=== PATIENT | female | born 1965 | race African-American/Black ===

== ENCOUNTER 2018-05-07 08:59 | Emergency (ER) | payer OTHER ==
[2018-05-07] MEDS ORDERED: OXYCODONE-ACETAMINOPHEN 5-325 MG TABLET PO ONE (10:41)
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
[2018-05-07 11:15] LABS: APPEARANCE,URINE CLEAR; BILIRUBIN,URINE NEGATIVE (NEGATIVE); COLOR,URINE YELLOW; GLUCOSE, URINE NEGATIVE (NEGATIVE); KETONES,URINE NEGATIVE (NEGATIVE); LEUKOCYTE ESTERASE,URINE TRACE (NEGATIVE); NITRITE,URINE NEGATIVE (NEGATIVE); PROTEIN,URINE NEGATIVE (NEGATIVE); UROBILINOGEN,URINE NEGATIVE mg/dL (<2.0)
[2018-05-07 11:18] LABS: ABSOLUTE BASOPHILS # (AUTO) 0.1 10^3/uL (0.0-0.2); ABSOLUTE EOSINOPHILS # (AUTO) 0.1 10^3/uL (0.0-0.6); ABSOLUTE LYMPHOCYTES (AUTO) 1.7 10^3/uL (0.5-4.7); ABSOLUTE MONOCYTES (AUTO) 0.3 10^3/uL (0.1-1.4); ABSOLUTE NEUT (AUTO) 5.2 10^3/uL (1.7-8.2); EOSINOPHILS % (AUTO) 1.9 % (0-6); HEMATOCRIT 43.4 % (36.0-47.0); HEMOGLOBIN 14.2 g/dL (12.0-15.5); LYMPHOCYTES % (AUTO) 22.4 % (13-45); MEAN CORPUSCULAR HEMOGLOBIN 25.5 pg (27.0-33.4); MEAN CORPUSCULAR HGB CONC 32.7 g/dL (32.0-36.0); MEAN CORPUSCULAR VOLUME 78 fl (80-97); MONOCYTES % (AUTO) 4.5 % (3-13); PLATELET COUNT 309 10^3/uL (150-450); RED BLOOD COUNT 5.57 10^6/uL (3.72-5.28); SEGMENTED NEUTROPHILS % (AUTO) 70.2 % (42-78); TOTAL CELLS COUNTED % (AUTO) 100 %; WHITE BLOOD COUNT 7.5 10^3/uL (4.0-10.5)
[2018-05-07] MEDS ORDERED: ONDANSETRON 4 MG TAB.RAPDIS PO ONE (11:21)
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
[2018-05-07 13:02] LABS: ANION GAP 10 (5-19); BLOOD UREA NITROGEN 12 mg/dL (7-20); CALCIUM 9.7 mg/dL (8.4-10.2); CARBON DIOXIDE 28 mmol/L (22-30); CHLORIDE 105 mmol/L (98-107); GLUCOSE 118 mg/dL (75-110); POTASSIUM 4.4 mmol/L (3.6-5.0); SODIUM 143.1 mmol/L (137-145)
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
[2018-05-07 13:45] VITALS: BP 114/54
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
== END 2018-05-07 14:29 | disposition home or self-care (01) ==
LOC: ER 08:59
DX: R10.84 Generalized abdominal pain (principal); R51 Headache; M54.2 Cervicalgia; M54.5 Low back pain; R10.30 Lower abdominal pain, unspecified; V87.7XXA Person injured in collision between other specified motor vehicles (traffic), initial encounter
CPT/HCPCS: 99284; 36415; 85025; 80048; 81001; 73552; 70450; 71250; 72125; 74176; S0119

== ENCOUNTER 2018-05-12 18:11 | Emergency (ER) | payer OTHER ==
[2018-05-12] MEDS ORDERED: CYCLOBENZAPRINE HCL 10 MG TABLET PO ONE (20:57)
[2018-05-12] MEDS ORDERED: MORPHINE SULFATE SR 15 MG TABLET PO ONE (20:58)
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
--- NOTE | 2018-05-12 21:39 | RADIOLOGY REPORT (SQ) ---
EXAM DESCRIPTION: XR FOOT 3 OR MORE VIEWS BILATERAL COMPLETED DATE/TME: 05/12/2018 20:58 CLINICAL HISTORY: 52 years, Female, pain Findings: Bony alignment is anatomic. No fracture or dislocation. Mild plantar and retrocalcaneal spurring. IMPRESSION: No fracture.
[2018-05-12 22:25] VITALS: BP 134/73
== END 2018-05-12 22:25 | disposition home or self-care (01) ==
LOC: ER 18:11
DX: M79.671 Pain in right foot (principal); M79.672 Pain in left foot; G44.89 Other headache syndrome; R07.9 Chest pain, unspecified; R10.9 Unspecified abdominal pain; V44.6XXA Car passenger injured in collision with heavy transport vehicle or bus in traffic accident, initial encounter; Z79.899 Other long term (current) drug therapy; Z88.8 Allergy status to other drugs, medicaments and biological substances
CPT/HCPCS: 99284; 73630; J3490

== ENCOUNTER 2018-10-04 11:50 | Emergency (ER) | payer OTHER ==
--- NOTE | 2018-10-04 12:47 | ER Document Report ---
ED Medical Screen (RME) - General Chief Complaint: Headache Stated Complaint: HEAD PAIN Time Seen by Provider: 10/04/18 12:44 Mode of Arrival: Wheelchair Information source: Patient Notes: 43-year-old female presented to ED for complaint of severe throbbing headache to the top of her head and behind her eyes. She states she hit her head on a car door a week ago and has had a severe headache. She states she is never had any history of strokes or blood pressure. She does have a history of rheumatoid arthritis degenerative disc disease degenerative joint disease and diverticulitis. She states she had a large amount of her large and intestines removed that she had a hernia with repair with mesh and then the mesh removed and she has had a hysterectomy. Patient is alert oriented respirations regular and unlabored pupils equal react to light and answering questions appropriately. I have greeted and performed a rapid initial assessment of this patient. A comprehensive ED assessment and evaluation of the patient, analysis of test results and completion of medical decision making process will be conducted by an additional ED providers. TRAVEL OUTSIDE OF THE [place] IN LAST 30 DAYS: No - Related Data Allergies/Adverse Reactions: alcohol Allergy (Verified 10/04/18 11:58) cinnamon Allergy (Verified 10/04/18 11:58) latex Allergy (Verified 10/04/18 11:58) Penicillins Allergy (Verified 05/07/18 09:03) shellfish derived Allergy (Verified 10/04/18 11:58) iv dye Allergy (Uncoded 10/04/18 12:35) perfumes Allergy (Uncoded 10/04/18 12:32) Past Medical History - Social History Frequency of alcohol use: None Drug Abuse: None Pulmonary Medical History: Reports: Hx Asthma - reactive airway dx Renal/ Medical History: Denies: Hx Peritoneal Dialysis Musculoskeltal Medical History: Reports Hx Arthritis - RA/djd back Past Surgical History: Reports: Hx Abdominal Surgery - large intestine colectomy/hernia repair, Hx Hysterectomy Physical Exam - Vital signs Vitals: Temp Pulse Resp BP Pulse Ox 98.0 F 62 16 129/76 H 100 10/04/18 12:01 10/04/18 12:01 10/04/18 12:01 10/04/18 12:01 10/04/18 12:01 Course - Vital Signs Vital signs: Temp Pulse Resp BP Pulse Ox 98.0 F 62 16 129/76 H 100 10/04/18 12:01 10/04/18 12:01 10/04/18 12:01 10/04/18 12:01 10/04/18 12:01
[2018-10-04 13:50] LABS: ABSOLUTE EOSINOPHILS # (AUTO) 0.1 10^3/uL (0.0-0.6); ABSOLUTE LYMPHOCYTES (AUTO) 1.5 10^3/uL (0.5-4.7); ABSOLUTE MONOCYTES (AUTO) 0.4 10^3/uL (0.1-1.4); ABSOLUTE NEUT (AUTO) 3.8 10^3/uL (1.7-8.2); BASOPHILS % (AUTO) 0.7 % (0-2); EOSINOPHILS % (AUTO) 2.5 % (0-6); HEMATOCRIT 40.5 % (36.0-47.0); LYMPHOCYTES % (AUTO) 26.1 % (13-45); MEAN CORPUSCULAR HGB CONC 32.1 g/dL (32.0-36.0); MEAN CORPUSCULAR VOLUME 78 fl (80-97); MONOCYTES % (AUTO) 6.3 % (3-13); PLATELET COUNT 274 10^3/uL (150-450); RED BLOOD COUNT 5.21 10^6/uL (3.72-5.28); RED CELL DISTRIBUTION WIDTH 14.5 % (11.5-14.0); SEGMENTED NEUTROPHILS % (AUTO) 64.4 % (42-78); TOTAL CELLS COUNTED % (AUTO) 100 %; WHITE BLOOD COUNT 5.8 10^3/uL (4.0-10.5)
[2018-10-04 13:57] LABS: INTERNATIONAL RATION (INR) 0.99; PROTHROMBIN TIME 13.6 SEC (11.4-15.4)
[2018-10-04 13:58] LABS: PARTIAL THROMBOPLASTIN TIME 35.5 SEC (23.5-35.8)
[2018-10-04] MEDS ORDERED: DEXAMETHASONE SOD PHOS INJ 10 MG/1 ML VIAL IV ONE (14:11)
[2018-10-04] MEDS ORDERED: DIPHENHYDRAMINE HCL 50 MG/ML VIAL IV ONE (14:11)
[2018-10-04] MEDS ORDERED: METOCLOPRAMIDE HCL INJ/PF 10 MG/2 ML SDV IV ONE (14:11)
[2018-10-04 14:13] LABS: ALANINE AMINOTRANSFERASE 28 U/L (9-52); ALBUMIN 4.1 g/dL (3.5-5.0); ALKALINE PHOSPHATASE 81 U/L (38-126); ANION GAP 9 (5-19); ASPARTATE AMINO TRANSFERASE 18 U/L (14-36); BILIRUBIN,DIRECT 0.4 mg/dL (0.0-0.4); BILIRUBIN,TOTAL 0.7 mg/dL (0.2-1.3); BLOOD UREA NITROGEN 10 mg/dL (7-20); CALCIUM 9.8 mg/dL (8.4-10.2); CARBON DIOXIDE 27 mmol/L (22-30); CHLORIDE 105 mmol/L (98-107); GLUCOSE 100 mg/dL (75-110); POTASSIUM 3.9 mmol/L (3.6-5.0); SODIUM 141.2 mmol/L (137-145); TOTAL PROTEIN 7.6 g/dL (6.3-8.2)
[2018-10-04 14:19] LABS: APPEARANCE,URINE CLEAR; BILIRUBIN,URINE NEGATIVE (NEGATIVE); COLOR,URINE YELLOW; GLUCOSE, URINE NEGATIVE (NEGATIVE); KETONES,URINE NEGATIVE (NEGATIVE); LEUKOCYTE ESTERASE,URINE NEGATIVE (NEGATIVE); NITRITE,URINE NEGATIVE (NEGATIVE); PROTEIN,URINE NEGATIVE (NEGATIVE); URINE SPECIFIC GRAVITY 1.021; UROBILINOGEN,URINE NEGATIVE mg/dL (<2.0)
--- NOTE | 2018-10-04 14:25 | RADIOLOGY REPORT (SQ) ---
EXAM DESCRIPTION: CT HEAD WITHOUT COMPLETED DATE/TIME: 10/04/2018 2:00 pm REASON FOR STUDY: Hit his head a week ago headache COMPARISON: 05/07/2018 TECHNIQUE: Axial images acquired through the brain without intravenous contrast. Images reviewed wi th bone, brain and subdural windows. Additional sagittal and coronal reconstructions were generated. Images stored on PACS. All CT scanners at this facility use dose modulation, iterative reconstruction, and/or weight based d osing when appropriate to reduce radiation dose to as low as reasonably achievable (ALARA). [facility]: Dose Right [facility]: CareDose [facility]: Dose Right [facility]: Teradose 4D [facility]: Zoomorama RADIATION DOSE: CT Rad equipment meets quality standard of care and radiation dose reduction techniq ues were employed. CTDIvol: 53.2 mGy. DLP: 937 mGy-cm. mGy. LIMITATIONS: None. FINDINGS: VENTRICLES: Normal size and contour. The cisterns are patent. CEREBRUM: No masses. No hemorrhage. No midline shift. No evidence for acute infarction. Normal gra y/white matter differentiation. No areas of low density in the white matter. CEREBELLUM: No masses. No hemorrhage. No alteration of density. No evidence for acute infarction. EXTRAAXIAL SPACES: No fluid collections. No masses. ORBITS AND GLOBE: No intra- or extraconal masses. Normal contour of globe without masses. CALVARIUM: No fracture. PARANASAL SINUSES: No fluid or mucosal thickening. SOFT TISSUES: No mass or hematoma. OTHER: No other significant finding. IMPRESSION: 1. No significant interval changes since the prior examination dated 05/07/2018. No acu te intracranial abnormality. EVIDENCE OF ACUTE STROKE: NO. COMMENT: Quality ID # [id number]: Final reports with documentation of one or more dose reduction techniques (e.g., Automated exposure control, adjustment of the mA and/or kV according to patient size, use of iterative reconstruction technique) TECHNICAL DOCUMENTATION: JOB ID: [id number] [employer]- All Rights Reserved Reading location - IP/workstation name: [email or web address]
--- NOTE | 2018-10-04 14:31 | ER Document Report ---
ED General - General Chief Complaint: Headache Stated Complaint: HEAD PAIN Time Seen by Provider: 10/04/18 12:44 Mode of Arrival: Wheelchair Information source: Patient TRAVEL OUTSIDE OF THE [place] IN LAST 30 DAYS: No - HPI Patient complains to provider of: Severe right sided headache, pain behind the right eye, nausea Onset: Other - 3 days ago Onset/Duration: Sudden Quality of pain: Sharp, Stabbing Severity: Severe Pain Level: 5 Associated symptoms: Nausea. denies: Chills, Diarrhea, Fever, Vomiting Exacerbated by: Denies Relieved by: Denies Similar symptoms previously: No Recently seen / treated by doctor: No Notes: 53-year-old female coming in today with 3 days of stabbing right-sided head pain, pain behind her right eye, and nausea. Also some blurry vision. No fevers or chills. No flulike illness. No neck stiffness. No rash. - Related Data Allergies/Adverse Reactions: alcohol Allergy (Verified 10/04/18 11:58) cinnamon Allergy (Verified 10/04/18 11:58) latex Allergy (Verified 10/04/18 11:58) Penicillins Allergy (Verified 05/07/18 09:03) shellfish derived Allergy (Verified 10/04/18 11:58) iv dye Allergy (Uncoded 10/04/18 12:35) perfumes Allergy (Uncoded 10/04/18 12:32) Past Medical History - General Information source: Patient - Social History Smoking Status: Smoker,Current Status Unk Frequency of alcohol use: None Drug Abuse: None Family History: Reviewed & Not Pertinent Patient has suicidal ideation: No Patient has homicidal ideation: No Pulmonary Medical History: Reports: Hx Asthma - reactive airway dx Renal/ Medical History: Denies: Hx Peritoneal Dialysis Musculoskeletal Medical History: Reports Hx Arthritis - RA/djd back Past Surgical History: Reports: Hx Abdominal Surgery - large intestine colectomy/hernia repair, Hx Hysterectomy Review of Systems - Review of Systems Notes: Constitutional: No fevers. No chills. EENT: No eye redness. No eye pain. No ear pain. No sore throat. Positive for blurry vision Cardiovascular: No chest pain. No palpitations. Respiratory: No cough. No shortness of breath. No respiratory distress. Gastrointestinal: No abdominal pain. Positive for nausea negative for vomiting and diarrhea Genitourinary: Atraumatic. No lesions. No pain. No discharge. Musculoskeletal: Atraumatic. No swelling. No deformities. Skin: No rash or lesions. Lymphatic: No swollen lymph nodes. Neurologic: +headache. No syncope. Psychiatric: No suicidal or homicidal ideation. Physical Exam - Vital signs Vitals: Temp Pulse Resp BP Pulse Ox 98.0 F 62 16 129/76 H 100 10/04/18 12:01 10/04/18 12:01 10/04/18 12:01 10/04/18 12:01 10/04/18 12:01 - Notes Notes: General: Very uncomfortable appearing but nontoxic Cardiac: Well-perfused. Regular rate and rhythm. No murmurs, rubs, or gallops. Pulmonary: No respiratory distress. No cyanosis. Bilateral lung fiels are clear to auscultation. Abdominal: Non-distended. Non-rigid. Bowels sounds are present in all four quadrants. No guarding or rebound. HEENT: Right templar tenderness to palpation. Conjunctivae not reddened. No tearing. PERRL. EOMI. Orbits atraumatic. No periorbital swelling or erythema. Oropharynx is without erythema, swelling, or exudates. Neck: Supple. No adenopathy. No meningismus. Dermatologic: Warm with good turgor. No rash. Atraumatic. Chest: Atraumatic. No chest wall tenderness to palpation. Musculoskeletal: Moves all extremities well. No range of motion deficits. no muscular or joint tenderness. No paraspinal muscle tenderness. no midline spinal tenderness or step-off. Genitourinary: Examination deferred Neurologic: No gross neurologic deficits. Psychiatric: Normal mood. Course - Re-evaluation Re-evalutation: 10/04/18 15:50 CT is negative. Labs look good including sed rate that is not elevated. Discussed that with the patient and she is relieved. Headache is still pretty significant. Now that a note that were not dealing with a hemorrhagic process I will go ahead and give some Toradol and some Dilaudid and some fluids and recheck her in just a little bit. 10/04/18 16:57 Headache is resolved. We will refer her to [facility] for further evaluation. - Vital Signs Vital signs: Temp Pulse Resp BP Pulse Ox 98.0 F 62 16 129/76 H 100 10/04/18 12:01 10/04/18 12:01 10/04/18 12:01 10/04/18 12:01 10/04/18 12:01 - Laboratory Result Diagrams: 10/04/18 13:43 10/04/18 13:43 Laboratory results interpreted by me: 10/04/18 10/04/18 13:43 13:43 MCV 78 L [facility] 25.0 L RDW 14.5 H Urine Blood SMALL H Discharge - Discharge Clinical Impression: Headache Qualifiers: Headache type: unspecified Headache chronicity pattern: acute headache Intractability: not intractable Qualified Code(s): R51 - Headache Condition: Good Disposition: HOME, SELF-CARE Instructions: Use of Diphenhydramine, Antinausea Medication ([facility]), Headache ([facility]), Oral Narcotic Medication ([facility]) Prescriptions: Butalb/Acetaminophen/Caffeine [Fioricet (50-325-40 mg) Tablet] 1 tab PO Q6HP PRN #12 tab PRN Reason: Metoclopramide HCl [Reglan] 10 mg PO Q6HP PRN #12 tablet PRN Reason: Referrals: [facility] [Provider Group] - 10/06/18
[2018-10-04] MEDS ORDERED: HYDROMORPHONE HCL INJ/PF 2 MG/ML AMPULE IV ONE (15:48)
[2018-10-04] MEDS ORDERED: KETOROLAC TROMETHAMINE INJ/PF 30 MG/1 ML SDV IV ONE (15:48)
[2018-10-04] MEDS ORDERED: NORMAL SALINE 1000 ML 1,000 ML IV ONE (15:49)
[2018-10-04 17:05] VITALS: BP 136/72
== END 2018-10-04 17:08 | disposition home or self-care (01) ==
LOC: ER 11:50
DX: R51 Headache (principal); R11.0 Nausea; H53.8 Other visual disturbances; J45.909 Unspecified asthma, uncomplicated; Z91.018 Allergy to other foods; Z91.040 Latex allergy status; Z88.0 Allergy status to penicillin; Z91.041 Radiographic dye allergy status; Z91.013 Allergy to seafood; Z91.048 Other nonmedicinal substance allergy status
CPT/HCPCS: 99284; 96361; 96374; 96375; 36415; 85025; 85652; 85610; 85730; 80053; 81001; 70450; J1200; J1885; J2765; J1170; J7030; J1100

== ENCOUNTER 2018-12-08 22:54 | Emergency (ER) | payer MEDICAID ==
[2018-12-08] MEDS ORDERED: OXYCODONE-ACETAMINOPHEN 5-325 MG TABLET PO ONE (23:45)
--- NOTE | 2018-12-09 00:39 | RADIOLOGY REPORT (SQ) ---
CLINICAL HISTORY: fall, knee pain COMPARISON: None. TECHNIQUE: XR KNEE 4 OR MORE VIEWS 12/08/2018 11:44 PM CDT FINDINGS: There is no fracture. There is mild narrowing of the medial knee compartment. Soft tissues are unremarkable. IMPRESSION: No acute osseous findings.
--- NOTE | 2018-12-09 00:40 | RADIOLOGY REPORT (SQ) ---
CLINICAL HISTORY: fall, back pain COMPARISON: None. TECHNIQUE: XR LUMBAR SPINE ANTEROPOSTERIOR, LATERAL, AND OBLIQUES 12/08/2018 11:44 PM CDT FINDINGS: There is no acute fracture. Alignment is anatomic. Disc spaces are maintained. Vertebral body heights are preserved. Soft tissues are unremarkable. IMPRESSION: No acute fracture or subluxation.
--- NOTE | 2018-12-09 00:41 | RADIOLOGY REPORT (SQ) ---
CLINICAL HISTORY: fall, hip pain COMPARISON: None. TECHNIQUE: XR HIP 2 OR MORE VIEWS 12/08/2018 11:44 PM CDT FINDINGS: There is no fracture. There is mild to moderate degenerative narrowing of both hip joints. Soft tissues are unremarkable. IMPRESSION: No acute osseous findings.
--- NOTE | 2018-12-09 00:55 | ER Document Report ---
ED General - General Chief Complaint: Back Pain Stated Complaint: FALL Time Seen by Provider: 12/08/18 23:12 Primary Care Provider: MAINOR ROSE DO [Primary Care Provider] - Follow up as needed TRAVEL OUTSIDE OF THE [place] IN LAST 30 DAYS: No - HPI Notes: 53-year-old female to the emergency department with complaints of left-sided lower back pain, left hip pain, left knee pain that began last night after she fell out of the chair. Patient states that she was making a bottle for her grandchild when she slipped out of the chair striking her left side of the body. She states that she has a history of disc herniation and does take gabapentin for this but is concerned because her normal gabapentin dosage has not been working for her. She typically walks with a cane and has continued to do so since the incident. She denies any bladder or bowel incontinence, urinary retention, radiculopathy, saddle paresthesias, fevers, IV drug abuse. She denies hitting her head, loss of consciousness, neck pain, upper back pain, right sided joint pain. She also admits that she has a little bit of tenderness to her left shoulder. She denies any lacerations or any other wounds. 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 Adverse Reaction (Uncoded 12/08/18 22:58) Past Medical History - General Information source: Patient, Relative - Social History Smoking Status: Never Smoker Frequency of alcohol use: None Drug Abuse: None Family History: Reviewed & Not Pertinent Pulmonary Medical History: Reports: Hx Asthma - reactive airway dx Renal/ Medical History: Denies: Hx Peritoneal Dialysis Musculoskeletal Medical History: Reports Hx Arthritis - RA/djd back Past Surgical History: Reports: Hx Abdominal Surgery - large intestine colectomy/hernia repair, Hx Hysterectomy Review of Systems - Review of Systems Constitutional: No symptoms reported EENT: No symptoms reported Cardiovascular: denies: Chest pain, Palpitations, Syncope, Dizziness, Lightheaded Respiratory: denies: Cough, Short of breath Gastrointestinal: denies: Abdominal pain, Diarrhea, Nausea, Vomiting Genitourinary: denies: Incontinence Musculoskeletal: Back pain, Joint pain - Positive left-sided back pain, left hip pain, left knee pain, Muscle pain Skin: No symptoms reported Neurological/Psychological: denies: Gait changes, Paralysis, Lost consciousness, Numbness, Tingling -: Yes All other systems reviewed and negative Physical Exam - Vital signs Vitals: Temp Pulse Resp BP Pulse Ox 97.6 F 77 18 138/81 H 93 12/08/18 23:00 12/08/18 23:00 12/08/18 23:00 12/08/18 23:00 12/08/18 23:00 Interpretation: Normal - General General appearance: Appears well In distress: None - She can ambulate with her cane without assistance. - HEENT Head: Normocephalic, Atraumatic Eyes: Normal Pupils: PERRL Neck: Normal - Respiratory Respiratory status: No respiratory distress Chest status: Nontender Breath sounds: Normal Chest palpation: Normal - Cardiovascular Rhythm: Regular Heart sounds: Normal auscultation Murmur: No - Abdominal Inspection: Normal, Obese Distension: No distension Bowel sounds: Normal Tenderness: Nontender Organomegaly: No organomegaly - Back Back: Tender - Tenderness to palpation over the midline lumbar spine and to the left paraspinal muscles. These muscles are in spasm. Negative straight leg raise bilaterally, Vertebra tenderness - Extremities Shoulder: Tender - Mild tenderness to palpation over the left shoulder joint, deformity no evidence of dislocation. She has full range of motion in the left upper and left right upper extremities against resistance with 5 out of 5 strength in flexion, extension, abduction, abduction. Radial pulses are intact. No tenderness to palpation over the left elbow wrist or hand. No snuffbox tenderness. Arm: Normal, Nontender Elbow: Normal, Nontender Forearm: Normal, Nontender Wrist: Normal, Nontender Hand: Normal, Nontender Hip: Tender - Tenderness to palpation over the left hip joint. No deformity, no leg length discrepancy, no internal rotation of the leg. She is able to walk with the assistance of a cane on his hip. Thigh: Normal, Nontender Knee: Tender - Tenderness to palpation to the lateral aspect of the anterior joint line of the left knee. No discernible joint effusion. No ecchymosis, deformity, dislocation, high rising patella, erythema, warmth. Negative valgus varus stress testing negative anterior drawer. Ankle: Nontender Foot: Nontender - Neurological Neuro grossly intact: Yes Cognition: Normal Orientation: AAOx4 [place] Coma Scale Eye Opening: Spontaneous [place] Coma Scale Verbal: Oriented El Coma Scale Motor: Obeys Commands El Coma Scale Total: 15 Speech: Normal Motor strength normal: LUE, RUE, LLE, RLE Sensory: Normal - Psychological Associated symptoms: Normal affect, Normal mood - Skin Skin Temperature: Warm Skin Moisture: Dry Skin Color: Normal Course - Re-evaluation Re-evalutation: 12/09/18 impression: Fall, left knee strain, left hip strain, low back strain. X-rays do not reveal any acute fractures, dislocation. Is feeling better after Percocet here in the emergency department. Will send home with short course of pain medicines and muscle relaxants. Will have a follow closely with primary care and orthopedist. She agrees with the plan. Urged to return if she has any worsening symptoms, such as leg numbness, inability to walk, worsening pain, urinary retention, saddle paresthesias, bladder bowel incontinence, fevers, or any other concerns. - Vital Signs Vital signs: Temp Pulse Resp BP Pulse Ox 98.1 F 73 20 141/78 H 95 12/09/18 01:04 12/09/18 01:04 12/09/18 01:04 12/09/18 01:04 12/09/18 01:04 - Diagnostic Test Radiology reviewed: Image reviewed, Reports reviewed Discharge - Discharge Clinical Impression: Low back pain, Strain of left knee, Strain of left hip, Fall Condition: Stable Disposition: HOME, SELF-CARE Instructions: Low Back Pain ([facility]) Additional Instructions: LOW BACK PAIN: Three out of every four people will have an episode of disabling back pain during their lifetime. Most commonly the pain is due to straining of the muscles and ligaments in the low back. Usual treatment includes: (1) Rest on a firm surface. Avoid lying on your stomach. (2) Ice pack the painful area. After a few days, gentle heat may be used intermittently to relax the area, or ice packs can be continued. (3) Medication may be needed -- muscle relaxers and antiinflammatory medicines are commonly used. (4) As the back improves, exercises are prescribed to strengthen the back and abdominal muscles. Your doctor will advise you on the proper care for your back at each stage in your recovery. You may be better in a few days -- or healing may take several weeks. If new symptoms of a "herniated disc" (radiation of pain, numbness, or tingling down the back of the leg or weakness in the leg) occur, you should be re-examined. Further testing may be necessary. ORAL NARCOTIC MEDICATION: You have been given a prescription for pain control. This medication is a narcotic. It's best taken with food, as nausea can result if taken on an empty stomach. Don't operate machinery or drive within six hours of taking this medication. Do not combine this medicine with alcohol, or with any medication which can cause sedation (such as cold tablets or sleeping pills) unless you get permission from the physician. Narcotics tend to cause constipation. If possible, drink plenty of fluids and eat a diet high in fiber and fruits. Please be aware that prescription narcotics also have the potential for abuse. People become addicted to these medications because of the general sense of wellbeing that they induce. This feeling along with a significant reduction in tension, anxiety, and aggression provides a stimulating seductive quality to these drugs. Once your pain is under control, we encourage you to discard your unused narcotics. MUSCLE RELAXERS: Muscle relaxing medications are usually prescribed for acute muscle spasm or injury to the neck and back. They are often combined with antiinflammatory pain medication for increased relief. You may stop the muscle relaxer when the pain and stiffness have improved. Start the medication again if spasms recur. Muscle relaxers may cause drowsiness, especially with the first dose. Do not operate machinery or drive while under the effects of the medication. Most muscle relaxers last up to 24 hours. Do not combine the medication with alcohol. ICE PACKS: Apply ice packs frequently against the painful area. Many different schedules are recommended, such as "20 minutes on, 20 minutes off" or "one hour ice, two hours rest." If you need to work, you may need to go longer between ice treatments. You should plan to have the area ice packed AT LEAST one fourth of the time. The ice should be applied over the wrap, tape, or splint, or over a layer of cloth -- not directly against the skin. Some ice bags have a built-in cloth and can be put directly on the skin. WARM PACKS: After approximately two days, apply gentle heat (such as a heating pad or hot water bottle) for about 20 to 30 minutes about every two hours -- at least four times daily. Warmth and elevation will help you make a more rapid recovery, and will ease the pain considerably. Do not use HOT heat, and never apply heat for longer than 30 minutes. The continuous heat can invisibly damage skin and muscles -- even when no burn is seen on the surface. Damaged muscles can make you MORE sore. FOLLOW-UP CARE: If you have been referred to a physician for follow-up care, call the physicians office for an appointment as you were instructed or within the next two days. If you experience worsening or a significant change in your symptoms, notify the physician immediately or return to the Emergency Department at any time for re-evaluation. Prescriptions: Cyclobenzaprine HCl [Flexeril 10 mg Tablet] 10 mg PO TIDP PRN #20 tablet PRN Reason: Naloxone HCl [Narcan] 4 mg NS PRN PRN #1 bottle PRN Reason: Oxycodone HCl/Acetaminophen [Percocet 5-325 mg Tablet] 1 tab PO ASDIR PRN #10 tab PRN Reason: Referrals: MAINOR ROSE DO [Primary Care Provider] - Follow up as needed
[2018-12-09 01:05] VITALS: BP 141/78
== END 2018-12-09 01:00 | disposition home or self-care (01) ==
LOC: ER 22:54
DX: S86.912A Strain of unspecified muscle(s) and tendon(s) at lower leg level, left leg, initial encounter (principal); S76.012A Strain of muscle, fascia and tendon of left hip, initial encounter; M54.5 Low back pain; W07.XXXA Fall from chair, initial encounter; Z91.040 Latex allergy status; Z88.0 Allergy status to penicillin
CPT/HCPCS: 72110; 99283

== ENCOUNTER 2019-03-10 12:43 | Emergency (ER) | payer MEDICAID ==
[2019-03-10] MEDS ORDERED: DIPHENHYDRAMINE HCL 50 MG/ML VIAL IV ONE (15:10)
[2019-03-10] MEDS ORDERED: KETOROLAC TROMETHAMINE INJ/PF 30 MG/1 ML SDV IV ONE (15:14)
--- NOTE | 2019-03-10 15:16 | ER Document Report ---
ED General - General Chief Complaint: Breathing Difficulty Stated Complaint: THROAT SWELLING Time Seen by Provider: 03/10/19 15:03 Primary Care Provider: MAINOR ROSE DO [Primary Care Provider] - Follow up as needed TRAVEL OUTSIDE OF THE [place] IN LAST 30 DAYS: No - HPI Patient complains to provider of: Hoarse Voice Notes: Patient with paroxysmal vocal cord dysfunction, presents with an exacerbation of her chronic symptoms. Patient is having difficulty phonating. Denies any difficulty breathing, no stridor noted. Patient is followed by [facility]. She states this diagnosis was only made 13 years after her symptoms. - Related Data Allergies/Adverse Reactions: alcohol Allergy (Verified 10/04/18 11:58) cinnamon Allergy (Verified 10/04/18 11:58) latex Allergy (Verified 10/04/18 11:58) Penicillins Allergy (Verified 05/07/18 09:03) shellfish derived Allergy (Verified 10/04/18 11:58) iv dye Allergy (Uncoded 10/04/18 12:35) perfumes Allergy (Uncoded 10/04/18 12:32) hand can doffer Adverse Reaction (Uncoded 12/08/18 22:58) Past Medical History - Social History Smoking Status: Former Smoker Family History: Reviewed & Not Pertinent Patient has suicidal ideation: No Patient has homicidal ideation: No Pulmonary Medical History: Reports: Hx Asthma - reactive airway dx Renal/ Medical History: Denies: Hx Peritoneal Dialysis Musculoskeletal Medical History: Reports Hx Arthritis - RA/djd back Past Surgical History: Reports: Hx Abdominal Surgery - large intestine colectomy/hernia repair, Hx Hysterectomy Review of Systems - Review of Systems Notes: REVIEW OF SYSTEMS: CONSTITUTIONAL: -fevers, -chills EENT: -eye pain, -difficulty swallowing, -nasal congestion CARDIOVASCULAR: -chest pain, -syncope. RESPIRATORY: -cough, -SOB GASTROINTESTINAL: -abdominal pain, -nausea, -vomiting, -diarrhea GENITOURINARY: -dysuria, -hematuria MUSCULOSKELETAL: -back pain, -neck pain SKIN: -rash or skin lesions. HEMATOLOGIC: -easy bruising or bleeding. LYMPHATIC: -swollen, enlarged glands. NEUROLOGICAL: -altered mental status or loss of consciousness, -headache, - neurologic symptoms PSYCHIATRIC: -anxiety, -depression. ALL OTHER SYSTEMS REVIEWED AND NEGATIVE. Physical Exam - Vital signs Vitals: Resp Pulse Ox 17 99 03/10/19 12:51 03/10/19 12:51 - Notes Notes: Physical exam PHYSICAL EXAMINATION: GENERAL: Well-appearing, well-nourished and in no acute distress. HEAD: Atraumatic, normocephalic. EYES: Pupils equal round and reactive to light, extraocular movements intact, sclera anicteric, conjunctiva are normal. ENT: nares patent, oropharynx clear without exudates. Moist mucous membranes. NECK: Normal range of motion, supple without lymphadenopathy, NEGATIVE stridor LUNGS: Breath sounds clear to auscultation bilaterally and equal. No wheezes rales or rhonchi. HEART: Regular rate and rhythm without murmurs ABDOMEN: Soft, nontender, normoactive bowel sounds. No guarding, no rebound. No masses appreciated. EXTREMITIES: Normal range of motion, no pitting or edema. No cyanosis. NEUROLOGICAL: Cranial nerves grossly intact. Normal speech, normal gait. Normal sensory and motor exams. PSYCH: Normal mood, normal affect. SKIN: Warm, Dry, normal turgor, no rashes or lesions noted. Course - Re-evaluation Re-evalutation: 03/10/19 15:14 [age]-year-old female presents with paroxysmal vocal cord dysfunction exacerbation. Patient has negative stridor. No acute distress. Oxygen saturations 100%. Tachycardia very calm appearance. Patient observed in the department for greater than 1 hour without intervention has no desats. Patient states she needs racemic epinephrine and IV diphenhydramine. She states is the protocol doctors at [facility] use. Will initiate this therapy. She markedly improved. Will discharge home improved - Vital Signs Vital signs: Temp Pulse Resp BP Pulse Ox 17 151/89 H 96 03/10/19 13:00 03/10/19 12:52 03/10/19 13:00 Discharge - Discharge Clinical Impression: Vocal cord dysfunction Condition: Stable Disposition: HOME, SELF-CARE Additional Instructions: Follow-up with your specialist at [facility] Referrals: MAINOR ROSE DO [Primary Care Provider] - Follow up as needed
[2019-03-10 15:45] VITALS: BP 150/89
== END 2019-03-10 15:45 | disposition home or self-care (01) ==
LOC: ER 12:43
DX: J38.3 Other diseases of vocal cords (principal); R49.0 Dysphonia; J45.909 Unspecified asthma, uncomplicated; Z87.891 Personal history of nicotine dependence; Z91.018 Allergy to other foods; Z91.040 Latex allergy status; Z88.0 Allergy status to penicillin; Z91.013 Allergy to seafood; Z91.048 Other nonmedicinal substance allergy status
CPT/HCPCS: J1200; J1885

== ENCOUNTER 2019-05-27 07:39 | Emergency (ER) | payer MEDICAID ==
[2019-05-27] MEDS ORDERED: NORMAL SALINE 1000 ML 1,000 ML IV ONE (11:32)
[2019-05-27] MEDS ORDERED: ONDANSETRON HCL INJ/PF 4 MG/2 ML SDV IV ONE (11:32)
[2019-05-27] MEDS ORDERED: KETOROLAC TROMETHAMINE INJ/PF 30 MG/1 ML SDV IV ONE (11:32)
--- NOTE | 2019-05-27 11:34 | ER Document Report ---
ED Medical Screen (RME) - General Chief Complaint: Flu Symptoms Stated Complaint: SHORT OF BREATH,NAUSEA Primary Care Provider: MAINOR ROSE DO [Primary Care Provider] - Follow up as needed TRAVEL OUTSIDE OF THE [place] IN LAST 30 DAYS: No - HPI Notes: 05/27/19 11:32 Patient is a 53-year-old female who was diagnosed with the flu 2 days ago presents complaining of having symptoms for several days prior but having increased cough with nausea, vomiting, decreased p.o. intake. Patient states that she is feeling dehydrated. She continues to have fevers and body aches associated as well as nasal congestion/discharge. I have treated and performed a rapid initial assessment of this patient. A comprehensive ED assessment and evaluation of the patient, analysis of test results and completion of medical decision making process will be conducted by additional ED providers. We will give the patient some meds/fluids and check basic labs/XR. PHYSICAL EXAMINATION: GENERAL: no acute distress. A&Ox4. Answers questions appropriately. 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 ibuprofen. zofran Past Medical History - Social History Frequency of alcohol use: None Drug Abuse: None Pulmonary Medical History: Reports: Hx Asthma - reactive airway dx Renal/ Medical History: Denies: Hx Peritoneal Dialysis Musculoskeltal Medical History: Reports Hx Arthritis - RA/djd back Past Surgical History: Reports: Hx Abdominal Surgery - large intestine colectomy/hernia repair, Hx Hysterectomy Physical Exam - Vital signs Vitals: Temp Pulse Resp BP Pulse Ox 100.5 F H 104 H 20 115/78 96 05/27/19 07:44 05/27/19 07:44 05/27/19 07:44 05/27/19 07:44 05/27/19 07:44 Course - Vital Signs Vital signs: Temp Pulse Resp BP Pulse Ox 100.5 F H 104 H 20 115/78 96 05/27/19 07:44 05/27/19 07:44 05/27/19 07:44 05/27/19 07:44 05/27/19 07:44 Doctor's Discharge - Discharge Referrals: MAINOR ROSE DO [Primary Care Provider] - Follow up as needed
[2019-05-27 11:59] LABS: ABSOLUTE BASOPHILS # (AUTO) 0.1 10^3/uL (0.0-0.2); ABSOLUTE EOSINOPHILS # (AUTO) 0.2 10^3/uL (0.0-0.6); ABSOLUTE LYMPHOCYTES (AUTO) 1.7 10^3/uL (0.5-4.7); ABSOLUTE MONOCYTES (AUTO) 0.5 10^3/uL (0.1-1.4); ABSOLUTE NEUT (AUTO) 3.3 10^3/uL (1.7-8.2); EOSINOPHILS % (AUTO) 2.9 % (0-6); HEMATOCRIT 42.4 % (36.0-47.0); HEMOGLOBIN 13.9 g/dL (12.0-15.5); MEAN CORPUSCULAR HEMOGLOBIN 25.6 pg (27.0-33.4); MEAN CORPUSCULAR HGB CONC 32.8 g/dL (32.0-36.0); MEAN CORPUSCULAR VOLUME 78 fl (80-97); MONOCYTES % (AUTO) 9.6 % (3-13); PLATELET COUNT 256 10^3/uL (150-450); RED BLOOD COUNT 5.44 10^6/uL (3.72-5.28); RED CELL DISTRIBUTION WIDTH 14.7 % (11.5-14.0); SEGMENTED NEUTROPHILS % (AUTO) 57.5 % (42-78); TOTAL CELLS COUNTED % (AUTO) 100 %; WHITE BLOOD COUNT 5.7 10^3/uL (4.0-10.5)
[2019-05-27 12:20] LABS: ALKALINE PHOSPHATASE 75 U/L (38-126); ANION GAP 11 (5-19); ASPARTATE AMINO TRANSFERASE 35 U/L (14-36); BILIRUBIN,DIRECT 0.3 mg/dL (0.0-0.4); BILIRUBIN,TOTAL 0.7 mg/dL (0.2-1.3); BLOOD UREA NITROGEN 12 mg/dL (7-20); CALCIUM 9.2 mg/dL (8.4-10.2); CARBON DIOXIDE 24 mmol/L (22-30); CHLORIDE 101 mmol/L (98-107); GLUCOSE 104 mg/dL (75-110); POTASSIUM 4.3 mmol/L (3.6-5.0); TOTAL PROTEIN 7.6 g/dL (6.3-8.2)
[2019-05-27 12:29] LABS: APPEARANCE,URINE SLIGHTLY-CLOUDY; BILIRUBIN,URINE NEGATIVE (NEGATIVE); GLUCOSE, URINE NEGATIVE (NEGATIVE); KETONES,URINE 20 mg/dL (NEGATIVE); PROTEIN,URINE NEGATIVE (NEGATIVE); URINE SPECIFIC GRAVITY 1.024
[2019-05-27 12:30] LABS: COLOR,URINE DARK YELLOW
--- NOTE | 2019-05-27 12:33 | RADIOLOGY REPORT (SQ) ---
EXAM DESCRIPTION: CHEST 2 VIEWS COMPLETED DATE/TIME: 05/27/2019 12:16 pm REASON FOR STUDY: cough, recent flu dx COMPARISON: CT of the chest without contrast from 05/07/2018. EXAM PARAMETERS: NUMBER OF VIEWS: two views TECHNIQUE: PA and lateral views of the chest were obtained. RADIATION DOSE: NA LIMITATIONS: none FINDINGS: LUNGS AND PLEURA: No consolidation, pleural effusion or pneumothorax. MEDIASTINUM AND HILAR STRUCTURES: No mediastinal or hilar contour abnormality. HEART AND VASCULAR STRUCTURES: The cardiac silhouette and pulmonary vasculature are within normal reddy its. BONES: No acute findings. HARDWARE: None in the chest. OTHER: No other finding. IMPRESSION: No acute cardiopulmonary process. TECHNICAL DOCUMENTATION: JOB ID: [id number] [employer]- All Rights Reserved Reading location - IP/workstation name: [email or web address]
[2019-05-27 13:37] VITALS: BP 113/60
--- NOTE | 2019-06-06 13:03 | ER Document Report ---
Entered by JOHN AKINS SCRIBE 05/27/19 1159 Acting as scribe for:SARABJIT HERNANDEZ IV, MD ED General - General Chief Complaint: Flu Symptoms Stated Complaint: SHORT OF BREATH,NAUSEA Primary Care Provider: MAINOR ROSE DO [Primary Care Provider] - 05/30/19 Mode of Arrival: Ambulatory Information source: Patient Notes: This 53-year-old female patient presents to the emergency department today with complaints of a cough, nausea, and a decreased appetite. Patient reports that she was diagnosed with influenza B 2 days ago and she was not started on Tamiflu. Patient states the only new symptom she has now is that she is nauseated which was not the case x2 days ago. Patient states that she "coughs till she gags". Patient states she has nausea medication at home but she would prefer to have ODT Zofran in case she can't keep the other meds down. Patient r eports that she has intermittently had fevers for the last several days with associated myalgias. TRAVEL OUTSIDE OF THE [place] 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 ibuprofen. zofran Past Medical History - General Information source: Patient, [facility] Records - Social History Smoking Status: Never Smoker Cigarette use (# per day): No Frequency of alcohol use: None Drug Abuse: None Lives with: Family Family History: Reviewed & Not Pertinent Patient has suicidal ideation: No Patient has homicidal ideation: No Pulmonary Medical History: Reports: Hx Asthma - reactive airway dx Musculoskeletal Medical History: Reports Hx Arthritis Past Surgical History: Reports: Hx Abdominal Surgery - large intestine colectomy/hernia repair, Hx Hysterectomy Review of Systems - Review of Systems Constitutional: See HPI, Fever EENT: No symptoms reported Cardiovascular: No symptoms reported Respiratory: See HPI, Cough Gastrointestinal: See HPI, Nausea Genitourinary: No symptoms reported Female Genitourinary: No symptoms reported Musculoskeletal: No symptoms reported Skin: No symptoms reported Hematologic/Lymphatic: No symptoms reported Neurological/Psychological: No symptoms reported -: Yes All other systems reviewed and negative Physical Exam - Vital signs Vitals: Temp Pulse Resp BP Pulse Ox 100.5 F H 104 H 20 115/78 96 05/27/19 07:44 05/27/19 07:44 05/27/19 07:44 05/27/19 07:44 05/27/19 07:44 - Notes Notes: Physical Exam: General: Alert, appears well. HEENT: Normocephalic. Atraumatic. PERRL. Extraocular movements intact. Oropharynx clear. Nasal congestion. Neck: Supple. Non-tender. Respiratory: No respiratory distress. Clear and equal breath sounds bilaterally. Cardiovascular: Regular rate and rhythm. Abdominal: Appears nauseated. Non-tender. No distension. Normal Bowel Sounds. Back: No gross abnormalities. Extremities: Moves all four extremities. Upper extremities: Normal inspection. Normal ROM. Lower extremities: Normal inspection. No edema. Normal ROM. Neurological: Normal cognition. AAOx4. Normal speech. Psychological: Normal affect. Normal Mood. Skin: Warm. Dry. Normal color. Course - Re-evaluation Re-evalutation: 05/27/19 12:53 Patient states she is feeling slightly better at this time. Results of ED MSE discussed with patient and patient's significant other. All questions were answered. When asked if patient's results and visit were explained in a way that they could understand the patient responded in the affirmative. Emergency signs and symptoms, reasons to return to the emergency department discussed with patient and patient's significant other. - Vital Signs Vital signs: Temp Pulse Resp BP Pulse Ox 98.5 F 85 22 H 113/60 93 05/27/19 13:36 05/27/19 13:36 05/27/19 13:36 05/27/19 13:36 05/27/19 13:36 - Laboratory Result Diagrams: 05/27/19 11:46 05/27/19 11:46 Laboratory results interpreted by me: 05/27/19 05/27/19 05/27/19 11:46 11:46 11:46 RBC 5.44 H MCV 78 L MCH 25.6 L RDW 14.7 H Sodium 135.7 L Urine Ketones 20 H Urine Urobilinogen 4.0 H Leukocyte Esterase Rfl MODERATE H - Diagnostic Test Radiology reviewed: Reports reviewed Discharge - Discharge Clinical Impression: Cough Vomiting Qualifiers: Vomiting type: unspecified Vomiting Intractability: non-intractable Nausea presence: with nausea Qualified Code(s): R11.2 - Nausea with vomiting, unspecified UTI (urinary tract infection) Qualifiers: Urinary tract infection type: site unspecified Hematuria presence: without hematuria Qualified Code(s): N39.0 - Urinary tract infection, site not specified Condition: Good Disposition: HOME, SELF-CARE Instructions: Urinary Tract Infection ([facility]), Vomiting ([facility]) Additional Instructions: Return to the Emergency Department without delay if any worse. HOME CARE INSTRUCTIONS & INFORMATION: Thank you for choosing us for your medical needs. We hope you're satisfied with the care you received. After you leave, you must properly care for your problem and, at the same time, observe its progress. Any condition can change. Some illnesses can change rapidly over hours or days. If your condition worsens, return to the Emergency Department or see your physician promptly. ABOUT YOUR X-RAYS AND EKG'S: If you had an EKG or X-rays taken, they have been read by the Emergency Physician. The X-rays and EKG's will also be read by a Radiologist or Doctor Of Naturopathic Medicine within 24 hours. If discrepancies are noted, you will be notified by telephone. Please be certain the ED has a correct telephone number & address where you can be reached. Also, realize that some fractures or abnormalities do not show up on initial X-rays. If your symptoms continue, see your physician. ABOUT YOUR LABORATORY TEST: If you had laboratory tests, the results have been reviewed by the Emergency Physician. Some test results (for example cultures) may not be available for several days. You will be contacted if any test result shows you need additional treatment. Please be certain the ED has a correct telephone number and address where you can be reached. ABOUT YOUR MEDICATIONS: You will receive instructions on how to take your medicine on the prescription label you receive. Additional information may be provided by the Pharmacy. If you have questions afterwards, call the ED for clarification or further instructions. Some prescribed medications may cause drowsiness. Do not perform tasks such as driving a car or operating machinery without consulting your Pharmacist. If you feel you need a refill of pain medication, your condition will need re-evaluation. Please do not call for a refill of any medication. ABOUT YOUR SIGNATURE: Signature of this document acknowledges to followin. Understanding that you received emergency treatment and that you may be released before al medical problems are known or treated. Please be certain the ED has a correct phone number & address where you can be reached. 2. Acknowledgement that you will arrange for follow-up care as recommended. 3. Authorization for the Emergency Physician to provide information to your follow-up Physician in order to maximize your care. AT ANY TIME, IF YOUR SYMPTOMS CHANGE SIGNIFICANTLY OR WORSEN OR YOU DEVELOP NEW SYMPTOMS, RETURN TO THE EMERGENCY DEPARTMENT IMMEDIATELY FOR RE-EVALUATION. OUR GOAL IS TO PROVIDE EXCELLENT MEDICAL CARE! WE HOPE THAT WE HAVE MET YOUR EXPECTATIONS DURING YOUR EMERGENCY DEPARTMENT VISIT AND THAT YOU FEEL YOU HAVE RECEIVED EXCELLENT CARE! Urinary Tract Infection Your evaluation indicates that you have a urinary tract infection. This is due to germs growing in the bladder. This is a common problem. This infection usually responds quickly to antibiotics. Your antibiotic should be taken exactly as prescribed. Drink plenty of fluids -- three to four quarts a day. Occasionally, a bladder anesthetic will be prescribed to help stop the feeling of urgency until the antibiotic has a chance to clear the infection. This may cause your urine to be dark orange. Certain urine infections require a culture. If the doctor obtained a culture, the results will be back in two days. You should call to see if a change in treatment is needed. A repeat urinalysis after you finish treatment is often recommended. The physician will let you know if further testing is required. Call the doctor if you develop fever, chills, flank pain, inability to urinate, or blood in the urine. Prescriptions: Hydrocodone Tannate/Chlor-Hodgson [Novasus Suspension] 5 ml PO Q12HP PRN #60 ml PRN Reason: Cough Nitrofurantoin/Nitrofuran Mac [Macrobid 100 mg Capsule] 1 tab PO BID #20 capsule Ondansetron [Zofran Odt 4 mg Tablet] 1 - 2 tab PO Q4H PRN #20 tab.rapdis PRN Reason: For Nausea/Vomiting Referrals: MAINOR ROSE DO [Primary Care Provider] - 05/30/19 I personally performed the services described in the documentation, reviewed and edited the documentation which was dictated to the scribe in my presence, and it accurately records my words and actions.
== END 2019-05-27 13:38 | disposition home or self-care (01) ==
LOC: ER 07:39
DX: R11.2 Nausea with vomiting, unspecified (principal); N39.0 Urinary tract infection, site not specified; R05 Cough; R50.9 Fever, unspecified; R09.81 Nasal congestion; R09.89 Other specified symptoms and signs involving the circulatory and respiratory systems; R63.0 Anorexia; M79.10 Myalgia, unspecified site; J45.909 Unspecified asthma, uncomplicated; Z91.048 Other nonmedicinal substance allergy status; Z91.018 Allergy to other foods; Z91.040 Latex allergy status; Z88.0 Allergy status to penicillin
CPT/HCPCS: 99283; 96361; 96374; 96375; 36415; 87086; 83690; 85025; 80053; 81001; 71046; J1885; J2405; J7030

== ENCOUNTER → 2019-08-24 | Outpatient (CLI) | payer SELFPAY ==
[2019-08-24 16:49] LABS: A TYPE INFLUENZA AG NEGATIVE (NEGATIVE); B INFLUENZA AG NEGATIVE (NEGATIVE)
--- NOTE | 2019-08-25 21:47 | ER RDC ASSESSMENT REPORT ---
Intake - In the Last 14 days Have you traveled outside [place]?: No Have you been in close contact with someone CONFIRMED: No Worked in Healthcare?: No - Symptoms Subjective Fever([place] feverish): Yes --How many day(s)?: 9 Chills: Yes --How many day(s)?: 9 Muscule Aches: Yes --How many day(s)?: 9 Runny Nose: Yes --How many day(s)?: 9 Sore Throat: Yes --How many day(s)?: 9 Cough (New or worsening chronic cough): Yes --How many day(s)?: 9 Shortness of breath: Yes --How many day(s)?: 9 Nausea or Vomiting: Yes --How many day(s)?: 3 Headache: Yes --How many day(s)?: 9 Abdominal Pain: No Diarrhea(3 or more loose stools in last 24 hours): Yes - Do you have any of the following Chronic lung disease: Asthma or emphysema or COPD: No Cystic Fibrosis: No Diabetes: No High Blood Pressure: No Cardiovascular Disease: No Chronic Kidney Disease: No Chronic Liver Disease: No Chronic blood disorder like Sickle Cell Disease: No Weak immune system due to disease or medication: No Neurologic condition that limits movement: No Developmental delay - Moderate to Severe: No Recent (within past 2 weeks) or current : No Morbid Obesity (>100 pounds over ideal weight): No - Objective Temperature: 97.7 F Pulse Rate: 97 Respiratory Rate: 20 Blood Pressure: 132/75 O2 Sat by Pulse Oximetry: 100 Objective: Given above, testing performed: rapid strep, flu a/b, throat culture, COVID If Testing Performed: [facility]; [facility] out[facility] for other tests General - General Chief Complaint: Flu Symptoms Stated Complaint: sore throat, cough, GI upset Mode of Arrival: Ambulatory Information source: Patient - HPI Patient complains to provider of: cough, sore throat, feverish Onset: Last week Onset/Duration: Gradual, Intermittent Quality of pain: No pain Associated symptoms: Allergy/hay fever, Body/muscle aches, Chills, Productive cough, Diarrhea, Fever, Headache, Nausea, Vomiting, Rhinnorhea, Sinus pain/drainage, Shortness of breath, Sore throat Exacerbated by: Movement, Coughing, Deep breathing Relieved by: Sitting, Remaining still Similar symptoms previously: No Recently seen / treated by doctor: No - Related Data Allergies/Adverse Reactions: alcohol Allergy (Verified 05/18/19 15:37) cinnamon Allergy (Verified 05/18/19 15:37) latex Allergy (Verified 05/18/19 15:37) Penicillins Allergy (Verified 05/18/19 15:37) shellfish derived Allergy (Verified 05/18/19 15:37) iv dye Allergy (Uncoded 05/18/19 15:37) perfumes Allergy (Uncoded 05/18/19 15:37) 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 Adverse Reaction (Uncoded 05/18/19 15:37) - Vital Signs Blood Pressure: 132/75 Temperature: 97.7 F Pulse Rate: 97 Respiratory Rate: 20 O2 Sat by Pulse Oximetry: 100 Past Medical History - General Information source: Patient - Social History Smoking Status: Unknown if Ever Smoked Family History: Reviewed & Not Pertinent - Past Medical History Cardiac Medical History: Reports: None Pulmonary Medical History: Reports: None EENT Medical History: 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 Denies: Hx Peritoneal Dialysis Malignancy Medical History: Reports: None GI Medical History: Reports: None Musculoskeletal Medical History: Reports Hx Arthritis Skin Medical History: Reports None Psychiatric Medical History: Reports: None Traumatic Medical History: Reports: None Infectious Medical History: Reports: None Past Surgical History: Reports: Hx Abdominal Surgery - large intestine colectomy/hernia repair, Hx Hysterectomy Physical Exam - Vital signs Interpretation: Normal - General General appearance: Appears well, Anxious In distress: None - HEENT Head: Normocephalic, Atraumatic Eyes: Normal Pupils: PERRL Sinus: Frontal, Maxillary, Tenderness Nasal: Purulent discharge Mouth/Lips: Normal Mucous membranes: Normal - Respiratory Respiratory status: No respiratory distress Chest status: Nontender Breath sounds: Productive cough, Other - diminished bases Chest palpation: Normal - Cardiovascular Rhythm: Regular Heart sounds: Normal auscultation Murmur: No Normal capillary refill: Yes - Abdominal Inspection: Normal Distension: No distension Bowel sounds: Normal Tenderness: Nontender Organomegaly: No organomegaly - Neurological Neuro grossly intact: Yes Cognition: Normal Orientation: AAOx4 [place] Coma Scale Eye Opening: Spontaneous [place] Scale Verbal: Oriented [place] Coma Scale Motor: Obeys Commands [place] Com[place] Scale Total: 15 Speech: Normal Motor strength normal: LUE, RUE, LLE, RLE Sensory: Normal - Psychological Associated symptoms: Normal affect, Anxious - Skin Skin Temperature: Warm Skin Moisture: Dry Skin Color: Normal Diagnostic Results Laboratory Results: 08/24/19 15:28 Throat Throat Culture - Final Group G Beta Streptococcus Normal [place] Influenza A (Rapid) NEGATIVE (NEGATIVE) 08/24/19 15:28 Influenza B (Rapid) NEGATIVE (NEGATIVE) 08/24/19 15:28 Group A Strep Rapid NEGATIVE (NEGATIVE) 08/24/19 15:28 Patient Education/Counseling Counseling/Education: COVID education Guidance for worsening S/SX: Return to the Emergency Department without delay if any worse. RDC Discharge - Discharge Clinical Impression: Cough, Upper respiratory infection, viral Condition: Stable Disposition: Home; Selfcare
[2019-08-25 22:08] VITALS: BP 132/75
== END ==
LOC: RDC 15:19
PROVIDERS: ATTEND Registered Nurse
DX: Z20.828 Contact with and (suspected) exposure to other viral communicable diseases (principal); J06.9 Acute upper respiratory infection, unspecified; R50.9 Fever, unspecified; R19.7 Diarrhea, unspecified; Z91.02 Food additives allergy status; Z91.040 Latex allergy status; Z88.0 Allergy status to penicillin; Z91.013 Allergy to seafood; Z91.048 Other nonmedicinal substance allergy status
CPT/HCPCS: 87070; 87077; 87635; 87804; 87880

== ENCOUNTER 2019-11-27 23:41 | Emergency (ER) | payer MEDICARE, SELFPAY ==
[2019-11-27] MEDS ORDERED: DEXAMETHASONE SOD PHOS INJ 10 MG/1 ML VIAL IV ONE (23:58)
[2019-11-27] MEDS ORDERED: FAMOTIDINE INJ/PF 20 MG/2 ML SDV IV ONE (23:58)
--- NOTE | 2019-11-28 00:01 | ER Document Report ---
ED Medical Screen (RME) - General Chief Complaint: Passed Out Prior to Arrival Stated Complaint: FALL/HEAD INJURY Primary Care Provider: MAINOR ROSE DO [Primary Care Provider] - Follow up as needed Notes: Patient is a 54-year-old -Filipino female with a history significant for vocal cord disorder who presents to the emergency department with a chief complaint of vocal cord swelling and reaction to interaction with an irritant that she was unaware of on some pizza. She states her cords began to swell causing hoarse voice and decreased air movement. Her O2 saturations reportedly dropped and she had a syncopal episode fall and striking the back of her head. She states she now has a headache. Her chaeykom-nw-pux tried to use an EpiPen on her but could not figure out how to work it. The patient states that she was able to take 2 Benadryl and that has since helped some. Her O2 sats in the door of triage are 100% on room air. She is hoarse and raspy with her voice. She appears to be moving air well with good movement in all lung joe. Oropharynx is patent at this time. I have treated and performed a rapid initial assessment of this patient. A comprehensive ED assessment and evaluation of the patient, analysis of test results and completion of medical decision making process will be conducted by additional ED providers. PHYSICAL EXAMINATION: GENERAL: Well-appearing, well-nourished and in no acute distress. A&Ox4. Answers questions appropriately. TRAVEL OUTSIDE OF THE [place] IN LAST 30 DAYS: No - Related Data Allergies/Adverse Reactions: alcohol Allergy (Verified 05/18/19 15:37) cinnamon Allergy (Verified 05/18/19 15:37) latex Allergy (Verified 05/18/19 15:37) Penicillins Allergy (Verified 05/18/19 15:37) shellfish derived Allergy (Verified 05/18/19 15:37) iv dye Allergy (Uncoded 05/18/19 15:37) perfumes Allergy (Uncoded 05/18/19 15:37) hand marketing co op Adverse Reaction (Uncoded 05/18/19 15:37) Past Medical History Pulmonary Medical History: Reports: Hx Asthma - reactive airway dx Renal/ Medical History: Denies: Hx Peritoneal Dialysis Musculoskeltal Medical History: Reports Hx Arthritis Past Surgical History: Reports: Hx Abdominal Surgery - large intestine colectomy/hernia repair, Hx Hysterectomy Physical Exam - Vital signs Vitals: Temp Pulse Resp BP Pulse Ox 98.8 F 96 20 128/75 H 100 11/27/19 23:48 11/27/19 23:48 11/27/19 23:48 11/27/19 23:48 11/27/19 23:48 Course - Vital Signs Vital signs: Temp Pulse Resp BP Pulse Ox 98.8 F 96 20 128/75 H 100 11/27/19 23:48 11/27/19 23:48 11/27/19 23:48 11/27/19 23:48 11/27/19 23:48 Doctor's Discharge - Discharge Referrals: MAINOR ROSE DO [Primary Care Provider] - Follow up as needed
[2019-11-28] MEDS ORDERED: EPINEPHRINE INJ/PF 1 MG/1 ML AMPULE ONE (00:03)
[2019-11-28] MEDS ORDERED: EPINEPHRINE INJ/PF 1 MG/1 ML AMPULE SUBCUT ONE (00:12)
[2019-11-28] MEDS ORDERED: RACEPINEPHRINE HCL 2.25% NEB 0.5 ML AMPUL NEB ONE (00:12)
--- NOTE | 2019-11-28 01:08 | RADIOLOGY REPORT (SQ) ---
EXAM DESCRIPTION: CT HEAD WITHOUT IV CONTRAST COMPLETED DATE/TME: 11/27/2019 23:58 CLINICAL HISTORY: 54 years, Female, head injury COMPARISON: 10/04/2018 CT TECHNIQUE: 184 Images stored on PACS. All CT scanners at this facility use dose modulation, iterative reconstruction, and/or weight based dosing when appropriate to reduce radiation dose to as low as reasonably achievable (ALARA). [facility]: Dose Right [facility]: CareDose [facility]: Dose Right [facility]: Teradose 4D [facility]: [employer] LIMITATIONS: None. FINDINGS: The globes are intact. The paranasal sinuses and mastoid air cells are well aerated. No displaced or depressed skull fracture. No intra or extra-axial hemorrhage. CT is limited for evaluation of acute infarct. No CT evidence for large or territorial acute infarct. No mass or midline shift IMPRESSION: No acute intracranial abnormality TECHNICAL DOCUMENTATION: Quality ID # [id number]: Final reports with documentation of one or more dose reduction techniques (e.g., Automated exposure control, adjustment of the mA and/or kV according to patient size, use of iterative reconstruction technique) copyright 2011 [employer]- All Rights Reserved
--- NOTE | 2019-11-28 01:53 | ER Document Report ---
Entered by MIKKI TURK SCRIBE 11/28/19 0010 Acting as scribe for:SARABJIT HERNANDEZ IV, MD ED General - General Chief Complaint: Passed Out Prior to Arrival Stated Complaint: FALL/HEAD INJURY Primary Care Provider: MAINOR ROSE DO [Primary Care Provider] - Follow up as needed Mode of Arrival: Wheelchair Information source: Patient Notes: This 54 year old female patient with a history of vocal cord disorder (VCD) presents to the ED today with complaints of dyspnea due to vocal cord swelling that started prior to arrival. Patient states that she is having a VCD attack in response to an irritant that was found on some pizza that she ate recently. She feels like she can inhale, but not exhale, which is a typical symptom related to VCD attacks. Patient reportedly had a syncopal episode due to decreased O2 sats and fell, striking the back of her head. She states that a family member tried to administer the EpiPen, but they couldn't figure it out. She notes that she was able to take Benadryl prior to arrival, which provided some relief. TRAVEL OUTSIDE OF THE [place] 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 Adverse Reaction (Uncoded 05/18/19 15:37) Past Medical History - General Information source: Patient - Social History Smoking Status: Unknown if Ever Smoked Cigarette use (# per day): No Chew tobacco use (# tins/day): No Smoking Education Provided: No Family History: Reviewed & Not Pertinent Patient has suicidal ideation: No Patient has homicidal ideation: No Pulmonary Medical History: Reports: Hx Asthma - reactive airway dx Musculoskeletal Medical History: Reports Hx Arthritis Past Surgical History: Reports: Hx Abdominal Surgery - large intestine colectomy, Hx Herniorrhaphy, Hx Hysterectomy Review of Systems - Review of Systems Constitutional: No symptoms reported EENT: See HPI, Throat swelling Cardiovascular: See HPI, Dyspnea, Syncope Respiratory: No symptoms reported Gastrointestinal: No symptoms reported Genitourinary: No symptoms reported Female Genitourinary: No symptoms reported Musculoskeletal: No symptoms reported Skin: No symptoms reported Hematologic/Lymphatic: No symptoms reported Neurological/Psychological: See HPI, Headaches -: Yes All other systems reviewed and negative Physical Exam - Vital signs Vitals: Temp Pulse Resp BP Pulse Ox 98.8 F 96 20 128/75 H 100 11/27/19 23:48 11/27/19 23:48 11/27/19 23:48 11/27/19 23:48 11/27/19 23:48 - General General appearance: Alert, Other - Hoarse voice, able to speak in short sentences In distress: None - HEENT Head: Normocephalic, Atraumatic - No traumatic injuries appreciated Eyes: Normal Pupils: PERRL - Respiratory Respiratory status: No respiratory distress Chest status: Nontender Breath sounds: Normal Chest palpation: Normal - Cardiovascular Rhythm: Regular Heart sounds: Normal auscultation Murmur: No Friction rub: No Gallop: None auscultated - Abdominal Inspection: Normal Distension: No distension Bowel sounds: Normal Tenderness: Nontender - Abdomen soft Organomegaly: No organomegaly - Back Back: Normal, Nontender - Extremities General upper extremity: Normal inspection General lower extremity: Normal inspection - Neurological Neuro grossly intact: Yes Orientation: AAOx4 El Coma Scale Eye Opening: Spontaneous El Coma Scale Verbal: Oriented Alpha Coma Scale Motor: Obeys Commands El Coma Scale Total: 15 - Psychological Associated symptoms: Normal affect, Normal mood - Skin Skin Temperature: Warm Skin Moisture: Dry Skin Color: Normal Course - Re-evaluation Re-evalutation: 11/28/19 04:45 Patient states she is feeling better at this time and is able to breathe without difficulty. Results of ED MSE discussed with patient. Emergency signs and symptoms discussed with patient. All questions were answered prior to discharge. - Vital Signs Vital signs: Temp Pulse Resp BP Pulse Ox 98.8 F 96 23 H 112/57 L 97 11/27/19 23:48 11/27/19 23:48 11/28/19 03:01 11/28/19 03:01 11/28/19 03:01 - Diagnostic Test Radiology reviewed: Reports reviewed Discharge - Discharge Clinical Impression: Acute dyspnea Head contusion Qualifiers: Encounter type: initial encounter Contusion of head detail: unspecified part of head Qualified Code(s): S00.93XA - Contusion of unspecified part of head, initial encounter Condition: Stable Disposition: HOME, SELF-CARE Additional Instructions: Return to the Emergency Department without delay if any worse. HOME CARE INSTRUCTIONS & INFORMATION: Thank you for choosing us for your medical needs. We hope you're satisfied with the care you received. After you leave, you must properly care for your problem and, at the same time, observe its progress. Any condition can change. Some illnesses can change rapidly over hours or days. If your condition worsens, return to the Emergency Department or see your physician promptly. ABOUT YOUR X-RAYS AND EKG'S: If you had an EKG or X-rays taken, they have been read by the Emergency Physician. The X-rays and EKG's will also be read by a Radiologist or Electronic Lab Technician within 24 hours. If discrepancies are noted, you will be notified by telephone. Please be certain the ED has a correct telephone number & address where you can be reached. Also, realize that some fractures or abnormalities do not show up on initial X-rays. If your symptoms continue, see your physician. ABOUT YOUR LABORATORY TEST: If you had laboratory tests, the results have been reviewed by the Emergency Physician. Some test results (for example cultures) may not be available for several days. You will be contacted if any test result shows you need additional treatment. Please be certain the ED has a correct telephone number and address where you can be reached. ABOUT YOUR MEDICATIONS: You will receive instructions on how to take your medicine on the prescription label you receive. Additional information may be provided by the Pharmacy. If you have questions afterwards, call the ED for clarification or further instructions. Some prescribed medications may cause drowsiness. Do not perform tasks such as driving a car or operating machinery without consulting your Pharmacist. If you feel you need a refill of pain medication, your condition will need re-evaluation. Please do not call for a refill of any medication. ABOUT YOUR SIGNATURE: Signature of this document acknowledges to followin. Understanding that you received emergency treatment and that you may be released before al medical problems are known or treated. Please be certain the ED has a correct phone number & address where you can be reached. 2. Acknowledgement that you will arrange for follow-up care as recommended. 3. Authorization for the Emergency Physician to provide information to your follow-up Physician in order to maximize your care. AT ANY TIME, IF YOUR SYMPTOMS CHANGE SIGNIFICANTLY OR WORSEN OR YOU DEVELOP NEW SYMPTOMS, RETURN TO THE EMERGENCY DEPARTMENT IMMEDIATELY FOR RE-EVALUATION. OUR GOAL IS TO PROVIDE EXCELLENT MEDICAL CARE! WE HOPE THAT WE HAVE MET YOUR EXPECTATIONS DURING YOUR EMERGENCY DEPARTMENT VISIT AND THAT YOU FEEL YOU HAVE RECEIVED EXCELLENT CARE! Contusion Your injury has resulted in a contusion -- a crushing of the deep tissues. No injury to important structures was detected during the physician's exam. Contusions vary in the amount of pain they cause, and in the length of time required for healing. Typically, the area will become bruised, and will remain painful to touch for two or three weeks. However, most patients are back to working and playing within a few days. After the initial period of rest and cold-packs, your symptoms (together with the doctor's recommendations) will determine how rapidly you can get back to full activity. Usually this means "do what feels okay, but don't do things that hurt." If re-examination was recommended, it's important to follow up as instructed. Call the doctor or return any time if pain increases, if swelling becomes severe, if you develop numbness or weakness in an injured extremity, or if any other alarming symptoms occur. Prescriptions: Epinephrine [Epipen 2-Noam] 0.3 mg IM ONCE PRN #1 packet PRN Reason: Dexamethasone [Taperdex] 1.5 mg PO DAILY 6 Days #21 tab.ds.pk Referrals: MAINOR ROSE DO [Primary Care Provider] - Follow up as needed I personally performed the services described in the documentation, reviewed and edited the documentation which was dictated to the scribe in my presence, and it accurately records my words and actions.
[2019-11-28 04:44] VITALS: BP 117/61
== END 2019-11-28 05:00 | disposition home or self-care (01) ==
LOC: ER 23:41
DX: J45.909 Unspecified asthma, uncomplicated (principal); R09.89 Other specified symptoms and signs involving the circulatory and respiratory systems; R55 Syncope and collapse; S00.93XA Contusion of unspecified part of head, initial encounter; W19.XXXA Unspecified fall, initial encounter; R51 Headache; R49.0 Dysphonia; Z91.048 Other nonmedicinal substance allergy status; Z91.040 Latex allergy status; Z88.0 Allergy status to penicillin; Z91.013 Allergy to seafood; Z91.041 Radiographic dye allergy status
CPT/HCPCS: 99285; 70450; J0171; J1100; J3490

== ENCOUNTER 2019-12-06 12:13 | Emergency (ER) | payer MEDICARE ==
--- NOTE | 2019-12-06 13:20 | ER Document Report ---
ED Medical Screen (RME) - General Chief Complaint: Leg Pain Stated Complaint: FALL/LEFT LEG PAIN Time Seen by Provider: 12/06/19 13:12 Primary Care Provider: MAINOR ROSE DO [Primary Care Provider] - Follow up as needed Mode of Arrival: Wheelchair Information source: Patient Notes: 54-year-old female presented to ED for complaint of left lower leg pain. She states it hurts from the hip to the ankle but is much worse to the back of the left lower leg. She states she did fall on 628 but this pain just started 3 days ago. She is alert oriented respirations regular nonlabored speaking in full sentences. She states it feels like a constant charley horse in the back of her leg. We will get labs and order a venous Doppler in the triage area. I have greeted and performed a rapid initial assessment of this patient. A comprehensive ED assessment and evaluation of the patient, analysis of test results and completion of medical decision making process will be conducted by an additional ED providers. TRAVEL OUTSIDE OF THE [place] 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 Adverse Reaction (Uncoded 05/18/19 15:37) Past Medical History Pulmonary Medical History: Reports: Hx Asthma - reactive airway dx Renal/ Medical History: Denies: Hx Peritoneal Dialysis Musculoskeltal Medical History: Reports Hx Arthritis Past Surgical History: Reports: Hx Abdominal Surgery - large intestine colectomy, Hx Herniorrhaphy, Hx Hysterectomy Physical Exam - Vital signs Vitals: Temp Pulse Resp BP Pulse Ox 98.6 F 77 16 127/97 H 100 12/06/19 12:18 12/06/19 12:18 12/06/19 12:18 12/06/19 12:18 12/06/19 12:18 Course - Vital Signs Vital signs: Temp Pulse Resp BP Pulse Ox 98.6 F 77 16 127/97 H 100 07/07/20 12:18 12/06/19 12:18 12/06/19 12:18 12/06/19 12:18 12/06/19 12:18 Doctor's Discharge - Discharge Referrals: MAINOR ROSE, [Primary Care Provider] - Follow up as needed
[2019-12-06 14:17] LABS: ABSOLUTE BASOPHILS # (AUTO) 0.1 10^3/uL (0.0-0.2); ABSOLUTE EOSINOPHILS # (AUTO) 0.2 10^3/uL (0.0-0.6); ABSOLUTE LYMPHOCYTES (AUTO) 2.3 10^3/uL (0.5-4.7); ABSOLUTE MONOCYTES (AUTO) 0.5 10^3/uL (0.1-1.4); ABSOLUTE NEUT (AUTO) 5.5 10^3/uL (1.7-8.2); BASOPHILS % (AUTO) 0.8 % (0-2); EOSINOPHILS % (AUTO) 2.3 % (0-6); HEMATOCRIT 41.5 % (36.0-47.0); HEMOGLOBIN 13.4 g/dL (12.0-15.5); MEAN CORPUSCULAR HEMOGLOBIN 25.6 pg (27.0-33.4); MEAN CORPUSCULAR HGB CONC 32.4 g/dL (32.0-36.0); MEAN CORPUSCULAR VOLUME 79 fl (80-97); MONOCYTES % (AUTO) 6.3 % (3-13); PLATELET COUNT 289 10^3/uL (150-450); RED BLOOD COUNT 5.24 10^6/uL (3.72-5.28); SEGMENTED NEUTROPHILS % (AUTO) 63.6 % (42-78); TOTAL CELLS COUNTED % (AUTO) 100 %; WHITE BLOOD COUNT 8.7 10^3/uL (4.0-10.5)
[2019-12-06 14:26] LABS: APPEARANCE,URINE SLIGHTLY-CLOUDY; BILIRUBIN,URINE NEGATIVE (NEGATIVE); COLOR,URINE YELLOW; GLUCOSE, URINE NEGATIVE (NEGATIVE); KETONES,URINE NEGATIVE (NEGATIVE); LEUKOCYTE ESTERASE,URINE SMALL (NEGATIVE); NITRITE,URINE NEGATIVE (NEGATIVE); PROTEIN,URINE NEGATIVE (NEGATIVE); URINE SPECIFIC GRAVITY 1.026
[2019-12-06 14:37] LABS: ALBUMIN 4.1 g/dL (3.5-5.0); ALKALINE PHOSPHATASE 85 U/L (38-126); ANION GAP 5 (5-19); ASPARTATE AMINO TRANSFERASE 19 U/L (14-36); BILIRUBIN,TOTAL 0.8 mg/dL (0.2-1.3); BLOOD UREA NITROGEN 12 mg/dL (7-20); CALCIUM 9.6 mg/dL (8.4-10.2); CARBON DIOXIDE 28 mmol/L (22-30); CHLORIDE 105 mmol/L (98-107); CREATINE KINASE 42 U/L (30-135); GLUCOSE 125 mg/dL (75-110); POTASSIUM 3.7 mmol/L (3.6-5.0); TOTAL PROTEIN 7.5 g/dL (6.3-8.2)
[2019-12-06] MEDS ORDERED: RACEPINEPHRINE HCL 2.25% NEB 0.5 ML AMPUL NEB ONE (17:35)
--- NOTE | 2019-12-06 17:49 | RADIOLOGY REPORT (SQ) ---
EXAM DESCRIPTION: VENOUS UNILATERAL LOWER IMAGES COMPLETED DATE/TIME: 12/06/2019 5:01 pm REASON FOR STUDY: left leg craping COMPARISON: None. TECHNIQUE: Dynamic and static soto scale and color images acquired of the left leg venous system. Se lected spectral images acquired with additional compression and augmentation maneuvers. The contralat eral common femoral vein and saphenofemoral junction were also imaged. Images stored on PACS. LIMITATIONS: None. FINDINGS: COMMON FEMORAL: Normal phasicity, compression and augmentation. No visualized echogenic ma terial on soto scale. No defects on color images. FEMORAL: Normal compression and augmentation. No visualized echogenic material on soto scale. No defe cts on color images. POPLITEAL: Normal compression, augmentation. No visualized echogenic material on soto scale. No defec ts on color images. CALF VESSELS: Normal compression, augmentation. No visualized echogenic material on soto scale. No de fects on color images. GSV and SSV: Normal compression, augmentation. No visualized echogenic material on soto scale. No def ects on color images. ANY DEEP VENOUS INSUFFICIENCY: Not evaluated. ANY EVIDENCE OF POPLITEAL CYST: No. OTHER: No other significant finding. CONTRALATERAL COMMON FEMORAL VEIN AND SAPHENOFEMORAL JUNCTION: Normal phasicity, compression and augmentation. No visualized echogenic material on soto scale. No de fects on color images. IMPRESSION: NO EVIDENCE DVT OR SVT IN THE LEFT LEG. TECHNICAL DOCUMENTATION: JOB ID: [id number] 2010 [employer]- All Rights Reserved Reading location - IP/workstation name: [email or web address]
[2019-12-06 18:43] VITALS: BP 127/78
--- NOTE | 2019-12-06 19:18 | RADIOLOGY REPORT (SQ) ---
EXAM DESCRIPTION: FEMUR LEFT; PELVIS AP IMAGES COMPLETED DATE/TIME: 12/06/2019 5:51 pm REASON FOR STUDY: fall; fall right hip pain COMPARISON: None. NUMBER OF VIEWS: Three views TECHNIQUE: Two radiographic images acquired of the left femur to include hip and knee in at least on e projection. AP view of the pelvis. LIMITATIONS: None. FINDINGS: MINERALIZATION: Normal. BONES: No acute fracture. No worrisome bone lesions. SOFT TISSUES: No obvious swelling or foreign body. OTHER: No other significant finding. IMPRESSION: No acute fracture or dislocation of the pelvis or left femur. TECHNICAL DOCUMENTATION: JOB ID: [id number] 2010 [employer]- All Rights Reserved Reading location - IP/workstation name: [email or web address]
--- NOTE | 2019-12-06 19:18 | RADIOLOGY REPORT (SQ) ---
EXAM DESCRIPTION: FEMUR LEFT; PELVIS AP IMAGES COMPLETED DATE/TIME: 12/06/2019 5:51 pm REASON FOR STUDY: fall; fall right hip pain COMPARISON: None. NUMBER OF VIEWS: Three views TECHNIQUE: Two radiographic images acquired of the left femur to include hip and knee in at least on e projection. AP view of the pelvis. LIMITATIONS: None. FINDINGS: MINERALIZATION: Normal. BONES: No acute fracture. No worrisome bone lesions. SOFT TISSUES: No obvious swelling or foreign body. OTHER: No other significant finding. IMPRESSION: No acute fracture or dislocation of the pelvis or left femur. TECHNICAL DOCUMENTATION: JOB ID: [id number] 2010 [employer]- All Rights Reserved Reading location - IP/workstation name: [email or web address]
--- NOTE | 2019-12-06 19:35 | ER Document Report ---
ED General - General Chief Complaint: Leg Pain Stated Complaint: FALL/LEFT LEG PAIN Time Seen by Provider: 12/06/19 13:12 Primary Care Provider: MAINOR ROSE DO [Primary Care Provider] - Follow up as needed Mode of Arrival: Wheelchair Notes: 54 y/o female with pmhx of vocal cord dysfunction and disc herniation presenting today for continued pain after a fall last week. States her left leg pain became painful and swollen 3 days after her fall. Head CT performed at last visit was normal. She states she did not have worsening low back pain or leg pain the day of the fall. Denies any current numbness/tingling in left leg. States her low back is always painful and does not hurt any more than usual. She does have left hip and left thigh pain. Denies any calf pain. States that she had a full hysterectomy almost 30 years ago. TRAVEL OUTSIDE OF THE [place] 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 Adverse Reaction (Uncoded 12/06/19 17:30) Home Medications: Vitamin D, neurontin, hyroxizine, albuterol inhaler PRN, robaxin PRN Past Medical History - General Information source: Patient - Social History Smoking Status: Never Smoker Family History: Reviewed & Not Pertinent Pulmonary Medical History: Reports: Hx Asthma - PVCD Renal/ Medical History: Denies: Hx Peritoneal Dialysis Musculoskeletal Medical History: Reports Hx Arthritis Past Surgical History: Reports: Hx Abdominal Surgery - large intestine colectomy, Hx Herniorrhaphy, Hx Hysterectomy Review of Systems - Review of Systems Constitutional: No symptoms reported EENT: No symptoms reported Cardiovascular: No symptoms reported Respiratory: No symptoms reported Gastrointestinal: No symptoms reported Musculoskeletal: See HPI Hematologic/Lymphatic: No symptoms reported Neurological/Psychological: No symptoms reported Physical Exam - Vital signs Vitals: Temp Pulse Resp BP Pulse Ox 98.6 F 77 16 127/97 H 100 12/06/19 12:18 12/06/19 12:18 12/06/19 12:18 12/06/19 12:18 12/06/19 12:18 - Notes Notes: Adult General: GENERAL: Alert, interacts well. No acute distress HEAD: Normocephalic, atraumatic EYES: Pupils equal, round and reactive to light. Extraocular movements intact. ENT: Airway patent. Nares patent NECK: Full range of motion. Supple. Trachea midline. No lymphadenopathy. LUNGS: Clear to auscultation bilaterally. Inspiratory stridor HEART: Regular rate and rhythm. No murmurs, rubs or gallops. ABDOMEN: Soft, nontender. Nondistended. GENITOURINARY: Deferred EXTREMITIES: Left thigh is tender to palpation. Left hip tender along lateral aspect. Moves all 4 extremities spontaneously. No edema, normal radial and dorsal pedis pulses bilaterally. No cyanosis. BACK: Left paraspinal muscle tender to palpation. No cervical, thoracic, lumbar midline tenderness. No saddle anesthesia, normal distal neurovascular exam. Moves all extremities with full range of motion. NEUROLOGICAL: Alert and oriented x3. Normal speech. Strength 5/ 5 in all extr emities. PSYCH: Normal affect, normal mood. SKIN: Warm, dry, normal turgor. No rashes or lesions noted. 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 Patient begins to develop some inspiratory stridor. She states that this is a common occurrence due to her vocal cord dysfunction and occurs with any of the things she is allergic to. States that she typically has racemic epi and Benadryl to help alleviate her symptoms. Patient was able to speak in only very short sentences. I ordered her racemic epi. Which helped alleviate her symptoms. Patient denies being short of breath after receiving the symptoms. 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 She takes Neurontin for them. She states that when she fell last week she felt weak after she began to feel the shortness of breath due to her vocal cord disorder. She denies any headache. She continues to have tenderness along her left lateral hip and tenderness along her anterior thigh. Doppler shows no DVT or SVTs. Patient also has no tenderness along her calves. Her legs do not appear swollen. She has no pitting edema. X-rays of her hip and her femur showed no acute findings to include fractures. Lab work is also unremarkable. I discussed the findings with the patient and I recommend that she follows up with her primary care provider. I suspect that her left leg pain is residual from her fall. Patient is uncertain if she fell on her hip. Patient is in agreements with following up with her primary care provider for her continued pain and her vocal cord dysfunction. And discharge patient was not short of breath, nontachypneic, not tachycardic. All questions answered. - Vital Signs Vital signs: Temp Pulse Resp BP Pulse Ox 97.9 F 72 39 H 127/78 H 96 12/06/19 15:59 12/06/19 15:59 12/06/19 17:30 12/06/19 18:01 12/06/19 18:01 - Laboratory Result Diagrams: 12/06/19 13:53 12/06/19 13:53 Laboratory results interpreted by me: 12/06/19 12/06/19 12/06/19 13:53 13:53 13:53 MCV 79 L MCH 25.6 L RDW 15.0 H Glucose 125 H Urine Urobilinogen 2.0 H Ur Leukocyte Esterase SMALL H Discharge - Discharge Clinical Impression: Leg swelling Back pain Qualifiers: Back pain location: low back pain Chronicity: chronic Back pain laterality: bilateral Sciatica presence: without sciatica Qualified Code(s): M54.5 - Low back pain Condition: Stable Disposition: HOME, SELF-CARE Additional Instructions: Your imaging has been unremarkable at this time. No fractures or DVTs noted in the lower extremity. I recommend that you follow-up with your primary care provider as soon as possible for further evaluation and treatment. Please follow-up with the emergency department for worsening symptoms or the development of new symptoms. Referrals: MAINOR ROSE DO [Primary Care Provider] - Follow up as needed
== END 2019-12-06 19:41 | disposition home or self-care (01) ==
LOC: ER 12:13
DX: M79.89 Other specified soft tissue disorders (principal); M79.652 Pain in left thigh; M25.552 Pain in left hip; W19.XXXA Unspecified fall, initial encounter; R06.1 Stridor; M54.5 Low back pain; G89.29 Other chronic pain; J45.909 Unspecified asthma, uncomplicated; Z91.048 Other nonmedicinal substance allergy status; Z79.899 Other long term (current) drug therapy; Z91.018 Allergy to other foods; Z91.040 Latex allergy status; Z88.0 Allergy status to penicillin; Z91.013 Allergy to seafood; Z91.041 Radiographic dye allergy status
CPT/HCPCS: 94640; 99284; 36415; 82550; 83735; 85025; 80053; 81001; 93971; 73552; 72170; J3490

== ENCOUNTER 2020-03-06 01:49 | Emergency (ER) | payer MEDICARE ==
[2020-03-06 04:05] LABS: APPEARANCE,URINE SLIGHTLY-CLOUDY; BILIRUBIN,URINE NEGATIVE (NEGATIVE); CALCIUM OXALATE CRYSTALS,URINE MODERATE /HPF; COLOR,URINE YELLOW; GLUCOSE, URINE NEGATIVE (NEGATIVE); KETONES,URINE NEGATIVE (NEGATIVE); LEUKOCYTE ESTERASE,URINE MODERATE (NEGATIVE); NITRITE,URINE NEGATIVE (NEGATIVE); PROTEIN,URINE NEGATIVE (NEGATIVE); URINE SPECIFIC GRAVITY 1.021
--- NOTE | 2020-03-06 04:24 | ER Document Report ---
ED General - General Chief Complaint: Abdominal Pain Stated Complaint: POST OP STOMACH ISSUES Time Seen by Provider: 03/06/20 04:23 Primary Care Provider: MAINOR ROSE DO [Primary Care Provider] - Follow up as needed TRAVEL OUTSIDE OF THE [place] IN LAST 30 DAYS: No - HPI Notes: 54-year-old female presents with abdominal pain. Patient has been having pain to the upper/central aspect of her abdomen. It started yesterday, however increased in the evening. She states it is like a pinching or cramping sensation. Made worse by pressing on it. She has had no nausea, vomiting or diarrhea. She states she has ate and drink per day per usual. She is still passing gas. She reports that she has had multiple abdominal surgeries from a hernia, which she reports "broke off". She had a large abdominal wound that required extensive healing and repair, this was done in [place]. Denies fever. She states that 2 days ago she had some dysuria as well. 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 Adverse Reaction (Uncoded 12/06/19 17:30) Home Medications: nuerotin, hydroxyzine, allery med, zofran Past Medical History - General Information source: Patient - Social History Smoking Status: Current Every Day Smoker Family History: Reviewed & Not Pertinent Pulmonary Medical History: Reports: Hx Asthma - PVCD Renal/ Medical History: Denies: Hx Peritoneal Dialysis Musculoskeletal Medical History: Reports Hx Arthritis Past Surgical History: Reports: Hx Abdominal Surgery - large intestine colectomy, Hx Herniorrhaphy, Hx Hysterectomy Review of Systems - Review of Systems Constitutional: denies: Fever EENT: No symptoms reported Cardiovascular: No symptoms reported Respiratory: No symptoms reported Gastrointestinal: See HPI Genitourinary: See HPI Female Genitourinary: No symptoms reported Musculoskeletal: No symptoms reported Skin: No symptoms reported Hematologic/Lymphatic: No symptoms reported Neurological/Psychological: No symptoms reported Physical Exam - Vital signs Vitals: Temp Pulse Resp BP Pulse Ox 98.3 F 92 20 131/80 H 100 03/06/20 01:55 03/06/20 01:55 03/06/20 01:55 03/06/20 01:55 03/06/20 01:55 - General General appearance: Appears well, Alert In distress: None - HEENT Head: Normocephalic, Atraumatic Eyes: No: Scleral icterus Extraocular movements intact: Yes Pupils: PERRL - Respiratory Breath sounds: Normal - Cardiovascular Rhythm: Regular Heart sounds: Normal auscultation - Abdominal Inspection: Healed incision, Obese Distension: No distension Bowel sounds: Normal Tenderness: Tender - Epigastric/central. No: Guarding, Rebound - Extremities General upper extremity: Normal inspection General lower extremity: Normal inspection - Neurological Neuro grossly intact: Yes Cognition: Normal Orientation: AAOx4 - Psychological Associated symptoms: Normal affect - Skin Skin Temperature: Warm Course - Re-evaluation Re-evalutation: 54-year-old female here with epigastric/central abdominal pain constant for s everal hours. On exam she is well-appearing, nontoxic, vital signs stable. Her abdomen is overall soft, she does have some tenderness, however there is no rebound or rigidity. She has a history of hernia surgery, I reviewed the photos on her phone which show a large wound with some bowel resection. Possible she may just be having some gastritis or other GI upset. However given her surgical history, she is definitely someone who needs to be ruled out for a small bowel obstruction, though she is eating/drinking/passing gas. CT abdomen with oral contrast ordered to evaluate. Will start with symptomatic control with morphine and Pepcid. 03/06/20 05:50 Labs reviewed. No leukocytosis or left shift. No acute anemia. Electrolytes within normal limits. No elevation of T bili/LFTs/lipase. Urine appears to be suboptimal collection, has leuk/leuk esterase, no bacteria. 03/06/20 06:05 Patient care to be turned over to Dr. Schneider, pending CT abdomen - Vital Signs Vital signs: Temp Pulse Resp BP Pulse Ox 98.3 F 92 20 131/80 H 100 03/06/20 01:55 03/06/20 01:55 03/06/20 01:55 03/06/20 01:55 03/06/20 01:55 - Laboratory Result Diagrams: 03/06/20 03:46 03/06/20 03:46 Laboratory results interpreted by me: 03/06/20 03/06/20 03/06/20 03:26 03:46 03:46 MCV 79 L MCH 26.3 L RDW 14.6 H Glucose 121 H Urine Blood SMALL H Urine Urobilinogen 2.0 H Ur Leukocyte Esterase MODERATE H Discharge - Discharge Clinical Impression: Central abdominal pain Disposition: OTHER Referrals: MAINOR ROSE DO [Primary Care Provider] - Follow up as needed
[2020-03-06 04:25] LABS: ALBUMIN 4.2 g/dL (3.5-5.0); ALKALINE PHOSPHATASE 90 U/L (38-126); ANION GAP 9 (5-19); ASPARTATE AMINO TRANSFERASE 20 U/L (14-36); BILIRUBIN,DIRECT 0.2 mg/dL (0.0-0.4); BILIRUBIN,TOTAL 0.5 mg/dL (0.2-1.3); BLOOD UREA NITROGEN 12 mg/dL (7-20); CALCIUM 9.9 mg/dL (8.4-10.2); CARBON DIOXIDE 28 mmol/L (22-30); CHLORIDE 105 mmol/L (98-107); GLUCOSE 121 mg/dL (75-110); TOTAL PROTEIN 7.3 g/dL (6.3-8.2)
[2020-03-06 04:29] LABS: ABSOLUTE EOSINOPHILS # (AUTO) 0.2 10^3/uL (0.0-0.6); ABSOLUTE LYMPHOCYTES (AUTO) 2.5 10^3/uL (0.5-4.7); ABSOLUTE MONOCYTES (AUTO) 0.4 10^3/uL (0.1-1.4); ABSOLUTE NEUT (AUTO) 4.2 10^3/uL (1.7-8.2); BASOPHILS % (AUTO) 0.5 % (0-2); EOSINOPHILS % (AUTO) 3.2 % (0-6); HEMATOCRIT 40.9 % (36.0-47.0); HEMOGLOBIN 13.6 g/dL (12.0-15.5); LYMPHOCYTES % (AUTO) 33.7 % (13-45); MEAN CORPUSCULAR HEMOGLOBIN 26.3 pg (27.0-33.4); MEAN CORPUSCULAR HGB CONC 33.4 g/dL (32.0-36.0); MEAN CORPUSCULAR VOLUME 79 fl (80-97); MONOCYTES % (AUTO) 5.5 % (3-13); PLATELET COUNT 282 10^3/uL (150-450); RED BLOOD COUNT 5.19 10^6/uL (3.72-5.28); RED CELL DISTRIBUTION WIDTH 14.6 % (11.5-14.0); SEGMENTED NEUTROPHILS % (AUTO) 57.1 % (42-78); TOTAL CELLS COUNTED % (AUTO) 100 %; WHITE BLOOD COUNT 7.3 10^3/uL (4.0-10.5)
[2020-03-06] MEDS ORDERED: MORPHINE SULFATE 10 MG/ML INJ IV ONE (04:46)
[2020-03-06] MEDS ORDERED: FAMOTIDINE INJ/PF 20 MG/2 ML SDV IV ONE (04:46)
--- NOTE | 2020-03-06 08:37 | RADIOLOGY REPORT (SQ) ---
EXAM DESCRIPTION: CT ABD/PELVIS ORAL ONLY IMAGES COMPLETED DATE/TIME: 03/06/2020 8:04 am REASON FOR STUDY: central pain, multiple surgeries, eval obstruction COMPARISON: 05/07/2018. TECHNIQUE: CT scan of the abdomen and pelvis performed with oral contrast and no intravenous contras t. Images reviewed with lung, soft tissue, and bone windows. Reconstructed coronal and sagittal MPR i mages reviewed. All images stored on PACS. All CT scanners at this facility use dose modulation, iterative reconstruction, and/or weight based d osing when appropriate to reduce radiation dose to as low as reasonably achievable (ALARA). [facility]: Dose Right [facility]: CareDose [facility]: Dose Right [facility]: Teradose 4D [facility]: Smart Technologies RADIATION DOSE: CT Rad equipment meets quality standard of care and radiation dose reduction techniq ues were employed. CTDIvol: 18.8 mGy. DLP: 964 mGy-cm.mGy. LIMITATIONS: None. FINDINGS: LOWER CHEST: No significant findings. No nodules or infiltrates. NON-CONTRASTED LIVER, SPLEEN, ADRENALS: Evaluation limited by lack of IV contrast. No identified sign ificant masses. PANCREAS: No masses. No peripancreatic inflammatory changes. GALLBLADDER: No identified stones by CT criteria. No inflammatory changes to suggest cholecystitis. RIGHT KIDNEY AND URETER: No solid masses. No significant calcification. No hydronephrosis or hydroure ter. LEFT KIDNEY AND URETER: No solid masses. No significant calcification. No hydronephrosis or hydrouret er. AORTA AND RETROPERITONEUM: No aneurysm. No retroperitoneal masses or adenopathy. BOWEL AND PERITONEAL CAVITY: Contrast is present throughout the small bowel and colon. No obstructiv e findings. No obvious masses or inflammatory changes. No free fluid. APPENDIX: Not visualized. PELVIS, BLADDER, AND ABDOMINAL WALL: No abnormal pelvic masses. Anterior abdominal wall hernia conta ining small bowel and colon. Bladder unremarkable. BONES: No significant findings. OTHER: No other significant finding. IMPRESSION: ANTERIOR ABDOMINAL WALL HERNIA CONTAINING SMALL BOWEL AND COLON. NO EVIDENCE OF BOWEL O BSTRUCTION. NO OTHER SIGNIFICANT OR ACUTE ABDOMINAL PROCESS. TECHNICAL DOCUMENTATION: JOB ID: [id number] Quality ID # [id number]: Final reports with documentation of one or more dose reduction techniques (e.g., Au tomated exposure control, adjustment of the mA and/or kV according to patient size, use of iterative reconstruction technique) 2010 [employer]- All Rights Reserved Reading location - IP/workstation name: [email or web address]
[2020-03-06 10:39] VITALS: BP 125/84
== END 2020-03-06 09:45 | disposition home or self-care (01) ==
LOC: ER 01:49
DX: N30.00 Acute cystitis without hematuria (principal); K43.9 Ventral hernia without obstruction or gangrene; F17.200 Nicotine dependence, unspecified, uncomplicated; Z79.899 Other long term (current) drug therapy; Z98.890 Other specified postprocedural states; Z91.018 Allergy to other foods; Z91.040 Latex allergy status; Z88.0 Allergy status to penicillin; Z91.013 Allergy to seafood; Z91.041 Radiographic dye allergy status; Z91.048 Other nonmedicinal substance allergy status; J45.909 Unspecified asthma, uncomplicated
CPT/HCPCS: 99285; 96374; 96375; 36415; 83690; 85025; 80053; 81001; 74176; J2270; S0028

== ENCOUNTER 2020-03-22 18:00 | Emergency (ER) | payer MEDICARE ==
[2020-03-22] MEDS ORDERED: DEXAMETHASONE 4 MG TABLET PO ONE (21:11)
--- NOTE | 2020-03-22 21:11 | ER Document Report ---
ED Respiratory Problem - General Chief Complaint: Shortness Of Breath Stated Complaint: SHORT OF BREATH,COUGH Time Seen by Provider: 03/22/20 20:58 Primary Care Provider: MAINOR ROSE DO [Primary Care Provider] - Follow up as needed Notes: CHIEF COMPLAINT: Shortness of breath since yesterday HPI: 54-year-old female presenting for shortness of breath intermittent since yesterday. Patient states that she was diagnosed with Covid 2 weeks ago, had a negative Covid test yesterday. States that she did develop some shortness of breath. States she has a history of an esophageal spasm that occasionally acts up but this does not specifically feel like I did use her albuterol inhaler today but does not feel like the shortness of breath is coming from her chest. States that she does not have difficulty taking a breath in. Has not had fevers. Denies other complaints at this time ROS: See HPI - all other systems were reviewed and are otherwise negative Constitutional: no fever Eyes: no drainage, no blurred vision ENT: no runny nose, no sore throat Cardiovascular: no chest pain Resp: + SOB, no cough GI: no vomiting, no diarrhea, no abdominal pain : no dysuria Integumentary: no rash Allergy: no hives Musculoskeletal: no extremity pain or swelling Neurological: no numbness/tingling, no weakness MEDICATIONS: I agree with the patient medications as charted by the RN. ALLERGIES: I agree with the allergies as charted by the RN. PAST MEDICAL HISTORY/PAST SURGICAL HISTORY: Reviewed and agree as charted by RN. SOCIAL HISTORY: Reviewed and agree as charted by RN. FAMILY HISTORY: No significant familial comorbid conditions directly related to patient complaint EXAM: Reviewed vital signs as charted by RN. CONSTITUTIONAL: Alert and oriented and responds appropriately to questions. Well-appearing; well-nourished HEAD: Normocephalic; atraumatic EYES: PERRL; Conjunctivae clear, sclerae non-icteric ENT: normal nose; no rhinorrhea; moist mucous membranes; pharynx without lesions noted, no uvula edema or deviation, no tonsillar hypertrophy, phonation slightly irritated NECK: Supple without meningismus; non-tender; no cervical lymphadenopathy, no masses. No stridor. CARD: RRR; no murmurs, no clicks, no rubs, no gallops; symmetric distal pulses RESP: Normal chest excursion without splinting or tachypnea; breath sounds clear and equal bilaterally; no wheezes, no rhonchi, no rales, pulse oximetry 97% on room air not hypoxic ABD/GI: Normal bowel sounds; non-distended; soft, non-tender, no rebound, no guarding; no palpable organomegaly or masses. BACK: The back appears normal and is non-tender to palpation, there is no CVA tenderness EXT: Normal ROM in all joints; non-tender to palpation; no cyanosis, no effusions, no edema SKIN: Normal color for age and race; warm; dry; good turgor; no acute lesions noted NEURO: Moves all extremities equally; Motor and sensory function intact PSYCH: The patient's mood and manner are appropriate. Grooming and personal hygiene are appropriate. MDM: 54-year-old female with shortness of breath complaint her lung sounds are clear to auscultation she is not hypoxic tachypneic or dyspneic. She feels like this may be partially related to an esophageal type stricture or spasm that she gets occasionally. Will obtain a soft tissue neck x-ray and a chest x-ray given her recent Covid diagnosis 2 weeks ago. Will give patient a dose of Decadron here. If x-ray does not show any narrowing of the airway believe she is stable for discharge to follow-up with her PCP or ENT TRAVEL OUTSIDE OF THE [place] 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 Adverse Reaction (Uncoded 03/22/20 20:06) Past Medical History - Social History Smoking Status: Former Smoker Chew tobacco use (# tins/day): No Frequency of alcohol use: None Drug Abuse: None Family History: Reviewed & Not Pertinent Patient has homicidal ideation: No Pulmonary Medical History: Reports: Hx Asthma - PVCD Renal/ Medical History: Denies: Hx Peritoneal Dialysis Musculoskeletal Medical History: Reports Hx Arthritis Past Surgical History: Reports: Hx Abdominal Surgery - large intestine colectomy, Hx Herniorrhaphy, Hx Hysterectomy Physical Exam - Vital signs Vitals: Temp Pulse Resp BP Pulse Ox 98.2 F 91 20 94/70 L 97 03/22/20 18:27 03/22/20 18:27 03/22/20 18:27 03/22/20 18:27 03/22/20 18:27 Course - Re-evaluation Re-evalutation: 03/22/20 22:55 X-ray imaging does not reveal any stenosis of the airway, no abnormalities in the chest. Patient was given Decadron here. She may continue her albuterol at home follow-up with her PCP tomorrow - Vital Signs Vital signs: Temp Pulse Resp BP Pulse Ox 98.2 F 91 20 94/70 L 97 03/22/20 20:02 03/22/20 18:27 03/22/20 18:27 03/22/20 18:27 03/22/20 18:27 Discharge - Discharge Clinical Impression: Shortness of breath Condition: Stable Disposition: HOME, SELF-CARE Additional Instructions: Your imaging studies today did not reveal any abnormalities. Chest x-ray and neck x-ray were both normal. You were given Decadron here to help decrease inflammation. Follow-up with your primary care provider tomorrow for reevaluation. Referrals: MAINOR ROSE DO [Primary Care Provider] - Follow up as needed
--- NOTE | 2020-03-22 22:46 | RADIOLOGY REPORT (SQ) ---
EXAM DESCRIPTION: XR CHEST 1 VIEW COMPLETED DATE/TME: 03/22/2020 21:11 CLINICAL HISTORY: 54 years, Female, sob COMPARISON: Prior study from 05/27/2019 NUMBER OF VIEWS: One TECHNIQUE: Single frontal view of the chest was obtained LIMITATIONS: None. FINDINGS: Cardiac and mediastinal contours are stable. Lungs are clear. No pleural effusion or pneumothorax. IMPRESSION: No acute disease. copyright 2010 [email or web address]- All Rights Reserved
--- NOTE | 2020-03-22 22:48 | RADIOLOGY REPORT (SQ) ---
EXAM DESCRIPTION: XR NECK SOFT TISSUE COMPLETED DATE/TME: 03/22/2020 21:11 CLINICAL HISTORY: 54 years, Female, sob COMPARISON: None. NUMBER OF VIEWS: 2 TECHNIQUE: Frontal and lateral radiograph are obtained LIMITATIONS: None. FINDINGS: Cervical spine is imaged from the skull base through the inferior endplate of C5. C1-C5 are in alignment. Vertebral body heights are maintained. Intervertebral disc heights are also well maintained though there is mild anterior endplate spurring at C5-C6. No prevertebral soft tissue swelling. Visualized lung apices are clear. Epiglottis appears normal. Lingual and adenoid tonsils show no suspicious abnormality. IMPRESSION: No acute radiographic abnormality. copyright 2010 [employer]- All Rights Reserved
[2020-03-22 23:23] VITALS: BP 152/91
== END 2020-03-22 23:24 | disposition home or self-care (01) ==
LOC: ER 18:00
DX: J45.909 Unspecified asthma, uncomplicated (principal); Z86.19 Personal history of other infectious and parasitic diseases; Z87.891 Personal history of nicotine dependence; Z91.013 Allergy to seafood; Z91.041 Radiographic dye allergy status; Z91.048 Other nonmedicinal substance allergy status; Z91.018 Allergy to other foods; Z91.040 Latex allergy status; Z88.0 Allergy status to penicillin
CPT/HCPCS: 99284; 71045; 70360; A9270; J8540

== ENCOUNTER 2020-04-24 16:28 | Emergency (ER) | payer MEDICARE ==
[2020-04-24] MEDS ORDERED: RACEPINEPHRINE HCL 2.25% NEB 0.5 ML AMPUL NEB ONE (17:12)
[2020-04-24] MEDS ORDERED: NORMAL SALINE 500 ML IV ONE (17:13)
[2020-04-24] MEDS ORDERED: DEXAMETHASONE SOD PHOS INJ 10 MG/1 ML VIAL IV ONE (17:13)
[2020-04-24] MEDS ORDERED: DIPHENHYDRAMINE HCL 50 MG/ML VIAL IV ONE (17:13)
[2020-04-24] MEDS ORDERED: FAMOTIDINE INJ/PF 20 MG/2 ML SDV IV ONE (17:14)
--- NOTE | 2020-04-24 18:03 | RADIOLOGY REPORT (SQ) ---
EXAM DESCRIPTION: CT HEAD WITHOUT IMAGES COMPLETED DATE/TIME: 04/24/2020 5:53 pm REASON FOR STUDY: qiu COMPARISON: 11/28/2019 TECHNIQUE: Axial images acquired through the brain without intravenous contrast. Images reviewed wi th bone, brain and subdural windows. Additional sagittal and coronal reconstructions were generated. Images stored on PACS. All CT scanners at this facility use dose modulation, iterative reconstruction, and/or weight based d osing when appropriate to reduce radiation dose to as low as reasonably achievable (ALARA). [facility]: Dose Right [facility]: CareDose [facility]: Dose Right [facility]: Teradose 4D [facility]: [employer] RADIATION DOSE: CT Rad equipment meets quality standard of care and radiation dose reduction techniq ues were employed. CTDIvol: 53.2 mGy. DLP: 937 mGy-cm. mGy. LIMITATIONS: None. FINDINGS: VENTRICLES: Normal size and contour. CEREBRUM: No masses. No hemorrhage. No midline shift. No evidence for acute infarction. Normal gra y/white matter differentiation. No areas of low density in the white matter. CEREBELLUM: No masses. No hemorrhage. No alteration of density. No evidence for acute infarction. EXTRAAXIAL SPACES: No fluid collections. No masses. ORBITS AND GLOBE: No intra- or extraconal masses. Normal contour of globe without masses. CALVARIUM: No fracture. PARANASAL SINUSES: No fluid or mucosal thickening. SOFT TISSUES: No mass or hematoma. OTHER: No other significant finding. IMPRESSION: NORMAL BRAIN CT WITHOUT CONTRAST. EVIDENCE OF ACUTE STROKE: NO. COMMENT: Quality ID # 436: Final reports with documentation of one or more dose reduction techniques (e.g., Automated exposure control, adjustment of the mA and/or kV according to patient size, use of iterative reconstruction technique) TECHNICAL DOCUMENTATION: JOB ID: [id number] 2010 [employer]- All Rights Reserved Reading location - IP/workstation name: [email or web address]
[2020-04-24] MEDS ORDERED: CEFTRIAXONE INJ 1000 MG VIAL IV ONE (18:15)
[2020-04-24] MEDS ORDERED: HYDROMORPHONE HCL INJ/PF 2 MG/ML AMPULE IV ONE (18:21)
--- NOTE | 2020-04-24 18:24 | ER Document Report ---
ED Headache - General Chief Complaint: Headache Stated Complaint: HEADACHE Primary Care Provider: MAINOR ROSE DO [Primary Care Provider] - Follow up as needed Mode of Arrival: Ambulatory Information source: Patient Notes: 54-year-old black female arrives by POV with her Vishal. She reports she was in the waiting room waiting to be seen because of diffuse frontal headache and right earache "when someone with perfume walked in front of her and she became very tight throated with squeaky voice". Mihaela LEVIN has seen her before for this and patient was placed and the minor procedure room and was given IV medications and racemic epinephrine breathing treatments by staff. CT head was negative. Quick physical exam revealed right ear that is bulging and erythemic. Patient reports "she has been placing Polysporin in her nose ever since she and her developed COVID-19 several weeks ago. And asymptomatic family member brought it home to them." TRAVEL OUTSIDE OF THE [place] 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 Adverse Reaction (Uncoded 03/22/20 20:06) Past Medical History - General Information source: Patient, Relative - Vishal - Social History Smoking Status: Never Smoker Cigarette use (# per day): No Chew tobacco use (# tins/day): No Smoking Education Provided: No Frequency of alcohol use: None Drug Abuse: None Lives with: Family Family History: Reviewed & Not Pertinent Patient has suicidal ideation: No Patient has homicidal ideation: No Pulmonary Medical History: Reports: Hx Asthma - PVCD Renal/ Medical History: Denies: Hx Peritoneal Dialysis Musculoskeletal Medical History: Reports Hx Arthritis Past Surgical History: Reports: Hx Abdominal Surgery - large intestine colectomy, Hx Herniorrhaphy, Hx Hysterectomy Review of Systems - Review of Systems Constitutional: See HPI, Recent illness EENT: See HPI, Eye pain, Ear pain Cardiovascular: No symptoms reported Respiratory: No symptoms reported Gastrointestinal: No symptoms reported Genitourinary: No symptoms reported Female Genitourinary: No symptoms reported Musculoskeletal: No symptoms reported Skin: No symptoms reported Hematologic/Lymphatic: No symptoms reported Neurological/Psychological: See HPI, Headaches -: Yes All other systems reviewed and negative Physical Exam - Vital signs Vitals: Temp Pulse Resp BP Pulse Ox 98.1 F 72 20 119/75 99 04/24/20 16:52 04/24/20 16:52 04/24/20 16:52 04/24/20 16:52 04/24/20 16:52 Interpretation: Normal - General General appearance: Alert, Anxious, Other - Patient with "squeaky voice" but able to speak in full sentences and oriented x4 - HEENT Head: Normocephalic, Atraumatic Eyes: Normal Pupils: PERRL Ears: Normal Tympanic membrane: Other - Left ear canal with cerumen but right TM with erythema and bulging Mucous membranes: Normal Pharynx: Uvular edema Neck: Normal - Respiratory Respiratory status: No respiratory distress Chest status: Nontender Breath sounds: Normal Chest palpation: Normal - Cardiovascular Rhythm: Regular Heart sounds: Normal auscultation Murmur: No - Abdominal Inspection: Normal Distension: No distension Bowel sounds: Normal Tenderness: Nontender Organomegaly: No organomegaly - Rectal Hemorrhoids: Other - Deferred - Genitourinary Bimanuel exam: Other - Deferred - Back Back: Normal, Nontender - Extremities General upper extremity: Normal inspection, Nontender, Normal color, Normal ROM, Normal temperature General lower extremity: Normal inspection, Nontender, Normal color, Normal ROM, Normal temperature, Normal weight bearing. No: Vance's sign - Neurological Neuro grossly intact: Yes Cognition: Normal Orientation: AAOx4 Faison Coma Scale Eye Opening: Spontaneous El Coma Scale Verbal: Oriented El Coma Scale Motor: Obeys Commands El Coma Scale Total: 15 Speech: Normal Motor strength normal: LUE, RUE, LLE, RLE Sensory: Normal - Psychological Associated symptoms: Anxious - Skin Skin Temperature: Warm Skin Moisture: Dry Skin Color: Normal Course - Vital Signs Vital signs: Temp Pulse Resp BP Pulse Ox 98.9 F 72 14 101/56 L 100 04/24/20 19:09 04/24/20 16:52 04/24/20 19:08 04/24/20 19:09 04/24/20 19:09 - Diagnostic Test Radiology reviewed: Reports reviewed Critical Care Note - Critical Care Note Comments: Patient much improved after breathing treatment and Benadryl Pepcid and Decadron IV. Patient able to speak in full sentences by [id number] Discharge - Discharge Clinical Impression: Headache Qualifiers: Headache type: unspecified Headache chronicity pattern: acute headache Intractability: not intractable Qualified Code(s): R51.9 - Headache, unspecified Otitis media of right ear Qualifiers: Otitis media type: unspecified Qualified Code(s): H66.91 - Otitis media, unspecified, right ear Allergic reaction Qualifiers: Encounter type: initial encounter Qualified Code(s): T78.40XA - Allergy, unspecified, initial encounter Condition: Good Disposition: HOME, SELF-CARE Additional Instructions: Clean toothbrush daily with hot water and dish detergent or antibacterial soap. Follow-up with ENT if symptoms persist and take medications as directed. Apply Bactroban to nose if symptoms persist. Encourage fluids Prescriptions: Hydroxyzine HCl [Atarax 10 mg Tablet] 10 mg PO TID PRN #30 tablet PRN Reason: congestion headache Mupirocin [Bactroban 2% Ointment 22 gm] 1 applic NASL HSP PRN #1 tube PRN Reason: Forms: Return to Work Referrals: MAINOR ROSE DO [Primary Care Provider] - Follow up as needed
[2020-04-24 19:30] VITALS: BP 101/56
== END 2020-04-24 19:57 | disposition home or self-care (01) ==
LOC: ER 16:28
DX: H66.91 Otitis media, unspecified, right ear (principal); U07.1 COVID-19; T78.40XA Allergy, unspecified, initial encounter; R09.89 Other specified symptoms and signs involving the circulatory and respiratory systems; R51.9 Headache, unspecified; Z91.018 Allergy to other foods; Z91.040 Latex allergy status; Z88.0 Allergy status to penicillin; Z91.013 Allergy to seafood; Z91.041 Radiographic dye allergy status; Z91.048 Other nonmedicinal substance allergy status; H61.22 Impacted cerumen, left ear
CPT/HCPCS: 94640; 99285; 96361; 96375; 96365; 70450; J1200; J1170; J0696; J7040; S0028; J1100; J3490